=== PATIENT | female | born 1960 | race Caucasian/White ===

== ENCOUNTER → 2017-09-27 09:56 | Outpatient (CLI) | payer BC, SELFPAY ==
--- NOTE | 2017-09-27 10:00 | RAD_ITS ---
STUDY: X-RAY - RIGHT HAND REASON FOR EXAM: Female, 57 years old. Bilateral hand pain right greater than left. TECHNIQUE: 3 view(s) of the hand. COMPARISON: 02/21/2013 FINDINGS: Normal radiocarpal articulation. Normal distal radioulnar joint. There is demineralization of osseous structures. Normal visualized carpal bones. Normal carpal articulations Normal carpometacarpal articulation of the thumb. Normal second through fifth carpometacarpal joints. Normal metacarpi. There is worsening degenerative arthrosis of the metacarpophalangeal (MCP) joints. There are new subchondral cysts. Normal interphalangeal joint of the thumb. Normal proximal and distal phalanges of the thumb. Normal metacarpophalangeal joints of the second through fifth fingers. Mild narrowing of the proximal and distal interphalangeal joints of the second through fifth fingers. Minimal spurring. Normal phalanges of the second through fifth fingers. The soft tissue structures are unremarkable. RAD/Hand Min 3 Views IMPRESSION: Degenerative changes involving the interphalangeal joint with joint space narrowing, minimal interval spur formation. There is no significant change. Worsening of degenerative changes at the first carpometacarpal joint. There is demineralization of osseous structures. Electronically Signed: Leticia Womack MD at 7:55 EDT , Service support ,
--- NOTE | 2017-09-27 10:00 | RAD_ITS ---
STUDY: X-RAY - LEFT HAND REASON FOR EXAM: Female, 57 years old. Bilateral hand pain, right is worse. TECHNIQUE: 3 view(s) of the hand. COMPARISON: None. FINDINGS: Normal radiocarpal articulation. Normal distal radioulnar joint. PICC penia Normal visualized carpal bones. Normal carpal articulations Normal carpometacarpal articulation of the thumb. Normal second through fifth carpometacarpal joints. Normal metacarpi. There is degenerative arthrosis of the metacarpophalangeal (MCP) joints. Normal interphalangeal joint of the thumb. Normal proximal and distal phalanges of the thumb. Normal metacarpophalangeal joints of the second through fifth fingers. Mild narrowing of the proximal and distal interphalangeal joints of the second through fifth fingers. Normal phalanges of the second through fifth fingers. The soft tissue structures are unremarkable. RAD/Hand Min 3 Views IMPRESSION: Mild narrowing of the interphalangeal joints. Mild degenerative changes first carpometacarpal joint. There is demineralization of osseous structures. Electronically Signed: Leticia Womack MD at 7:44 EDT , Service support ,
== END ==
PROVIDERS: Family Provider Family Medicine; PCP Family Medicine; Visit Provider Family Medicine
DX: M79.644 Pain in right finger(s) (principal)
CPT/HCPCS: 73130

== ENCOUNTER → 2017-10-01 10:58 | Outpatient (CLI) | payer BC, SELFPAY ==
[2017-10-01 11:32] LABS: Absolute Lymphocyte Count 1.56 X10^3/ul (0.83-4.51); Absolute Neutrophil Count 4.1 X10^3/uL (2.0-7.7); Basophil# 0.01 X10^3/uL; Basophil% 0.2 % (0-1); Eosinophil# 0.15 X10^3/uL; Eosinophils% 2.4 % (0-5); Hematocrit 41.1 % (37-47); Hemoglobin 13.8 g/dl (12.0-15.0); Lymphocyte # 1.56 X10^3/ul (4.0); Lymphocyte % 25.1 % (19-41); Mean Corp Hgb Conc 33.6 g/gl (32-36); Mean Corpuscular Hgb 31.2 pg (27.0-32.0); Mean Corpuscular Volume 92.8 fL (81-99); Mean Platelet Vol. 9.4 fl (6.2-12.0); Monocyte# 0.39 X10^3/uL; Monocyte% 6.3 % (0-10); Neutrophil % 65.8 % (47-70); Platelet Count 197 K/mm3 (150-450); RBC Distribution Width CV 12.1 % (11.6-14.6); RBC Distribution Width SD 41.1 fl (35.1-43.9); Red Blood Count 4.43 M/mm3 (4.2-5.4); White Blood Count 6.2 K/mm3 (4.4-11.0)
[2017-10-01 11:33] LABS: POSITIVE COUNT NO; POSITIVE DIFFERENTIAL NO; POSITIVE MORPHOLOGY NO
[2017-10-01 11:57] LABS: Microalbumin,Random Urine 5.1 mg/L (NO RANGE EST.); Microalbumin:Creatinine Ratio 7.2 mg/g CRE (<30 mg/g CRE)
[2017-10-01 12:14] LABS: ALB/GLOB Ratio 1.2 RATIO (0.9-2.4); AST(SGOT) 14 U/L (15-37); Alanine Aminotransfer ALT/SGPT 17 U/L (13-56); Albumin, Serum 3.7 g/dL (3.2-5.0); Alkaline Phosphatase 108 U/L (45-117); Anion Gap 6 (5-15); BUN 14 mg/dL (7-18); BUN/Creat Ratio 15.2 RATIO (10-20); Calcium,Total 8.5 mg/dL (8.5-10.1); Chloride 109 mmol/L (98-107); Cholesterol 153 mg/dL (200); Creatinine, Serum 0.92 mg/dL (0.55-1.02); EST Glomerular Filtration Rate 67 mL/min (>60); Est Glom Filt Rate - Afr Amer 81 mL/min (>60); Glucose 82 mg/dL (74-106); High Density Lipoprotein 36 mg/dL; Potassium 4.1 mmol/L (3.5-5.1); Protein, Total 6.7 g/dL (6.4-8.2); Sodium Level 143 mmol/L (136-145); Triglycerides 84 mg/dL; Very Low Density Lipoprotein 17 mg/dL (5-40)
== END ==
PROVIDERS: Family Provider Family Medicine; PCP Family Medicine; Visit Provider Family Medicine
DX: Z00.00 Encounter for general adult medical examination without abnormal findings (principal); R03.0 Elevated blood-pressure reading, without diagnosis of hypertension; F17.200 Nicotine dependence, unspecified, uncomplicated
CPT/HCPCS: 36415; 80053; 80061; 82043; 82570; 84443; 85025

== ENCOUNTER 2017-10-18 09:00 | Outpatient (RCR) | payer BC, SELFPAY ==
--- NOTE | 2017-10-07 09:54 | HP.OTEVAL_ITS ---
Patient's Visit Information NAILA ZHANG is a 57 year old F, referred to Occupational Therapy by DR.ESMITH Don, with a diagnosis of Bilateral CMC arthritis-. Date of Evaluation: 10/07/17 Occupational Therapist: Isabella Viera, ÁNGEL/Ray, CHT - Subjective Subjective: pt states she is having bilateral thumb pain following home mtg. 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 pt states work is willing to assist with ergo work station as needed. - Pain right thumb 0 Pain Intensity Range: 0, 8 left thumb 0 Pain Intensity Range: 0, 6 - ROM CMC: right 15 left 15 MP: right 34 left 50 IP: right 60 left 75 Radial Abduction: right 30 left wfl Palmar Abduction: WNL - Strength Tube Building Machine Operator: right 65# left 60# Lateral Pinch: right 8# left left 10# both MCP collapse Tripod Pinch: right 8# left 8# - Hand/Wrist Evaluation Total Score of Pain & Functional Sections: 39 - Goals Goal:: pt will report a decrease in bilateral CMC pain to less than 2/10 while performing BADLS, IADLs and work tasks by d/c Goal:: pt will demo the ability to manipulate coins for greater than 2 min with pain no greater than 2/10 by d/c Goal:: pt will demo the ind.with joint protc. danielle for work by d/c - Rehabilitation General Assessment: Pt demo with bilateral CMC arthritis. pt demo need for skilled OT services to assist pt on work ergo, joint protection, and ad. eq. OT will see pt 1-2x week for 4 weeks to ensure pt has made work ergo. adj, and using joint protection danielle. during her day. Rehabilitation Potential: Good - Anticipated Interventions Anticipated Interventions: A/AAROM/PROM, Strengthening, Triggerpoint Release, Modalities, Orthoses, Joint Protection/Energy Conservation, Ergonomic Education - Visit Plan Frequency: 1-2x /Week Duration: 4 Weeks General Plan: OT will see pt 1-2xweek for 4 weeks will ed. pt on joint protection-thumb care and ad.eq.to increase pts ind. with BADLS and IADLS and work tasks. TEXT: Thank you for the opportunity to evaluate your patient. For Medicare and Medicare HMO plans, please review the plan of care and approve it. It will need to be FAXED BACK to us at [phone] for Medicare purposes. Please let me know if there are questions or concerns regarding this plan of care. Physician Signature: Date:
--- NOTE | 2018-03-14 09:07 | HP.OT.NRP ---
HP - Discharge Summary - Patient Information NAILA ZHANG was seen in my office for initial evaluation on 10/07/17. The following Plan of Care was established for this patient: Initial Frequency: 1-2x /Week Initial Duration: 4 Weeks Plan: cont with orthosis adj and erasmo of left cmc orthosis - Anticipated Interventions Anticipated Interventions: A/AAROM/PROM, Strengthening, Triggerpoint Release, Modalities, Orthoses, Joint Protection/Energy Conservation, Ergonomic Education This patient was last seen in our office 10/18/17. Pertinent comments regarding their Occupational therapy will appear below: PT was seen for 2 visits. pt did have 4 No show cancellations during this time. pt has not returned to OT sessions and due to time laps pt is D/C at this time. At this point I will be discontinuing this patient from occupational therapy. I would be happy to see this patient again in the future if found appropriate by the physician. Thank you! Isabella Viera, OTR/L, CHT
== END 2017-10-18 19:00 | disposition home or self-care (01) ==
LOC: OT 09:00
PROVIDERS: Family Provider Family Medicine; PCP Family Medicine; Visit Provider Family Medicine
DX: M79.641 Pain in right hand (principal); M79.642 Pain in left hand; M19.042 Primary osteoarthritis, left hand; M19.041 Primary osteoarthritis, right hand
CPT/HCPCS: 97110; 97166; 97760

== ENCOUNTER → 2018-06-23 10:57 | Outpatient (CLI) | payer BC, SELFPAY ==
[2018-06-27 09:07] LABS: HPV HC, High Risk Negative (Negative)
== END ==
PROVIDERS: Visit Provider Obstetrics & Gynecology
DX: Z12.4 Encounter for screening for malignant neoplasm of cervix (principal)
CPT/HCPCS: 87624; 88175; G0145

== ENCOUNTER → 2018-07-03 09:17 | Outpatient (CLI) | payer BC, SELFPAY ==
[2018-07-03 12:48] LABS: Vitamin D,25 Hydroxy 29.4 ng/mL (29.95-100.01)
[2018-07-03 12:57] LABS: Ferritin 5 ng/mL (8-252); Thyroid Stim Hormone (TSH) 0.94 uIU/mL (0.358-3.74)
--- OUTSIDE RECORDS SUMMARY | 2018-10-04 21:33 | XMS RPT_ITS ---
:1960 Author Organization OHIP Care Team Providers Name Role Phone You Peraza Attending Unavailable You Peraza Referring Unavailable You Peraza Primary Care Unavailable Martin Rothman Attending Unavailable Ana Rivera Attending Unavailable You Peraza Referring Unavailable You Peraza Primary Care Unavailable Peraza, You Attending Unavailable Peraza, You Referring Unavailable Peraza, You Primary Care Unavailable Peraza, You Attending Unavailable Peraza, You Referring Unavailable Peraza, You Primary Care Unavailable Peraza, You Attending Unavailable Peraza, You Referring Unavailable Peraza, You Primary Care Unavailable PROBLEMS PROBLEMS DATE TYPE CONDITION / CODE ATTENDING STATUS SOURCE 06/23/2018 Unknown Z12.4 - Encounter for Martin Rothman Active [place] screening for Community malignant neoplasm of Hospital cervix / Repository Z12.4(ICD-10) 03/14/2018 Unknown M79.641 - Pain in You Peraza Active [place] right hand / Community M79.641(ICD-10) Hospital Repository 10/06/2017 Unknown M18.11 - Unilateral [place], Active [place] primary [facility] 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, right hand / M18.11(ICD-10) 10/06/2017 Unknown M18.12 - Unilateral [place], Active [place] primary [facility] 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, left hand / M18.12(ICD-10) 10/01/2017 Unknown R03.0 - Elevated You Peraza Active [place] blood-pressure Community reading, without Hospital diagnosis of Repository hypertension / R03.0(ICD-10) 10/01/2017 Unknown F17.200 - Nicotine You Peraza Active [place] dependence, Community unspecified, Hospital uncomplicated / Repository F17.200(ICD-10) 10/01/2017 Unknown Z00.00 - Encounter You Peraza Active [place] for general adult [facility] medical [facility] without abnormal Repository findings / Z00.00(ICD-10) PROCEDURES PROCEDURES No Procedure Records FoundRESULTS RESULTS VITAMIN D,25 HYDROXY Collected: 07/03/2018 Status: F Source: [place] 9[facility] TYPE CODE TESTS RESULT OUT OF REFERENCE UNITS RANGE LAB L506.1000 29.95-100.01 ng/mL Low Vitamin D 29.4 25-OH Result Comment: Vitamin D 25(OH) Status Range Deficiency <20 ng/mL (50nmol/L) Insuffciency 20 - 30 ng/mL (50 - 75 nmol/L) Sufficiency 30 - 100 ng/mL (75 - 250 nmol/L) Toxicity >100 ng/mL (>250 nmol/L) Performed By: #### L506.1000 #### [place] [facility] [address] [place], [address] THYROID STIM HORMONE Collected: 07/03/2018 Status: F Source: [place] (TSH) 9:23 AM [facility] REPOSITORY TYPE CODE TESTS RESULT OUT OF RANGE REFERENCE UNITS LAB L501.9520 0.358-3.74 uIU/mL Normal TSH 0.94 Performed By: #### L501.9520, L503.6550 #### [facility] [address] [place], [address] FERRITIN Collected: 07/03/2018 Status: F Source: [place] 9:23 AM [facility] REPOSITORY TYPE CODE TESTS RESULT OUT OF REFERENCE UNITS RANGE LAB L503.6550 8-252 ng/mL Low FERRITIN 5 Performed By: #### L501.9520, L503.6550 #### [facility] [address] 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 of containers..01 ThinPrep Vial TYPE CODE TESTS RESULT OUT OF RANGE REFERENCE UNITS LAB L7400.0800 . Normal DIAGN Comment Result Comment: NEGATIVE FOR INTRAEPITHELIAL LESION AND MALIGNANCY. LAB L7400.0900 . Normal ADEQ Comment Result Comment: Satisfactory for evaluation. Endocervical and/or squamous metaplastic cells (endocervical component) are present. LAB L7400.1400 . Normal PERFORM Comment Result Comment: Alana Edwards, Rigger (ASCP) LAB L7400.2575 . Normal TEST METHOD Comment Result Comment: This liquid based ThinPrep(R) pap test was screened with the use of an image guided system. LAB L7400.2600 . Normal . COMM LAB L7400.2700 . Normal PAPSMR Comment Result Comment: The Pap smear is a screening test designed to aid in the detection of premalignant and malignant conditions of the uterine cervix. It is not a diagnostic procedure and should not be used as the sole means of detecting cervical cancer. Both false-positive and false-negative reports do occur. LAB L7400.2950 Negative Normal HPV Negative HC,HGH RISK Result Comment: This high-risk HPV test detects thirteen high-risk types (16/18/31/33/35/39/45/51/52/56/58/59/68) without differentiation. Performed at: - [facility] [id number] Vice President Of Recruiting: Sanjuana Sellers MD, Phone: [phone] Performed at: = - [facility] [id number] Vice President Of Recruiting: Sanjuana Sellers MD, Phone: [phone] Performed By: #### L7400.0375 #### [facility] (refer to report for specific site) refer to report for address and phone number OT D/C OF NON Observed: 03/14/2018 Status: F Source: [place] PT 9:22 AM [facility] REPOSITORY [facility] Occupational Therapy [facility] [address] [place] [address]. [address] [place] [address] Fax REHABILITATION SERVICES DISCHARGE SUMMARY MR#: [id number] Acct: [id number] Name: MARY ZHANG Rep #: [id number] : 1960 58 From: Isabella Viera OTR/L, CHT Referring Dr.: You Peraza MD Status: REG RCR Eval Date: Discharge Date: HP - Discharge Summary - Patient Information MARY ZHANG was seen in my office for initial evaluation on 10/07/17. The following Plan of Care was established for this patient: Initial Frequency: 1-2x /Week Initial Duration: 4 Weeks Plan: cont with orthosis adj and erasmo of left cmc orthosis - Anticipated Interventions Anticipated Interventions: A/AAROM/PROM, Strengthening, Triggerpoint Release, Modalities, Orthoses, Joint Protection/Energy Conservation, Ergonomic Education This patient was last seen in our office 10/18/17. Pertinent comments regarding their Occupational therapy will appear below: PT was seen for 2 visits. pt did have 4 No show cancellations during this time. pt has not returned to OT sessions and due to time laps pt is D/C at this time. At this point I will be discontinuing this patient from occupational therapy. I would be happy to see this patient again in the future if found appropriate by the physician. Thank you! ZACHERY Medina CHT <Electronically signed by Isabella BINGHAM CHT> 03/14/18 0922 CC: You Peraza MD MK Signed OT GENERAL EVALUATION Observed: 10/07/2017 Status: F Source: [place] 11:54 AM [facility] REPOSITORY [facility] Occupational Therapy [facility] [address]. [address] [place], [place] [address] Fax REHABILITATION SERVICES INITIAL EVALUATION MR#: [id number] Acct: [id number] Name: MARY ZHANG Rep #: [id number] : 1960 57 From: Isabella BINGHAM CHT Referring Dr.: You Peraza MD Status: REG RCR Insurance: [facility] Date: SELF PAY INSURANCE Patient's Visit Information MARY ZHANG is a 57 year old F, referred to Occupational Therapy by DR.ESMITH Don, with a diagnosis of Bilateral CMC arthritis-. Date of Evaluation: 10/07/17 Occupational Therapist: ZACHERY Medina CHT - Subjective Subjective: pt states she is having bilateral thumb pain following home mtg. 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 pt states work is willing to assist with ergo work station as needed. - Pain right thumb 0 Pain Intensity Range: 0, 8 left thumb 0 Pain Intensity Range: 0, 6 - ROM CMC: right 15 left 15 MP: right 34 left 50 IP: right 60 left 75 Radial Abduction: right 30 left wfl Palmar Abduction: WNL - Strength Travel Physical Therapist: right 65# left 60# Lateral Pinch: right 8# left left 10# both MCP collapse Tripod Pinch: right 8# left 8# - Hand/Wrist Evaluation Total Score of Pain AND Functional Sections: 39 - Goals Goal:: pt will report a decrease in bilateral CMC pain to less than 2/10 while performing BADLS, IADLs and work tasks by d/c Goal:: pt will demo the ability to manipulate coins for greater than 2 min with pain no greater than 2/10 by d/c Goal:: pt will demo the ind.with joint protc. danielle for work by d/c - Rehabilitation General Assessment: Pt demo with bilateral CMC arthritis. pt demo need for skilled OT services to assist pt on work ergo, joint protection, and ad. eq. OT will see pt 1-2x week for 4 weeks to ensure pt has made work ergo. adj, and using joint protection danielle. during her day. Rehabilitation Potential: Good - Anticipated Interventions Anticipated Interventions: A/AAROM/PROM, Strengthening, Triggerpoint Release, Modalities, Orthoses, Joint Protection/Energy Conservation, Ergonomic Education - Visit Plan Frequency: 1-2x /Week Duration: 4 Weeks General Plan: OT will see pt 1-2xweek for 4 weeks will ed. pt on joint protection-thumb care and ad.eq.to increase pts ind. with BADLS and IADLS and work tasks. TEXT: Thank you for the opportunity to evaluate your patient. For Medicare and Medicare HMO plans, please review the plan of care and approve it. It will need to be FAXED BACK to us at [phone] for Medicare purposes. Please let me know if there are questions or concerns regarding this plan of care. Physician Signature: Date: <Electronically signed by Isabella NEAL/Ray, CHT> 10/07/17 1154 CC: You Peraza MD FRANSICO Signed For Medicare only, by signing this I certify the plan of care. Physicians Signature Date ORTHOPEDIC VISIT Observed: 10/06/2017 Status: F Source: [place] REPORT 11:29 AM [facility] REPOSITORY [facility] Orthopa[facility]ics AND Sports Medicine [address] [place] [address] 5 [place] [address] OFFICE VISIT Date of Service: 10/06/17 MR#: [id number] Acct: [id number] Name: MARY ZHANG Rep #: [id number] : 1960 Provider: Ana Rivera DO Age/Sex: 57/F [place] [facility] [place] [place] Signed Intake Intake Visit Reasons: Right Thumb Is patient in pain?: Yes Allergies No Known Allergies Allergy (Unverified 10/06/17 08:35) Medications bupropion HCl XL 300 mg 24 hr tablet, extended release 300 mg PO QAM 10/06/17 [History Confirmed 10/06/17] meloxicam 15 mg tablet 15 mg PO QDAY 10/06/17 [History Confirmed 10/06/17] PFSH Surgical History ectopic surgery (Acute) Social History Smoking Status: Current every day smoker alcohol intake: current alcohol intake frequency: holidays/special occasions only HPI Right Thumb: Details: MARY ZHANG is a 57 year old F here today for bilateral hand pain, right greater than left. Patient complains of pain over the base of her thumbs. She has been having the pain for many years with it progressively worsening. Patient denies any grinding. She has increased pain with activities although her pain is constant. She denies any pain relief. Patient notices weakness. Patient has wrist braces which are somewhat helpful. She denies any injections or therapy. Patient had xrays recently. Denies numbness, tingling or other associated symptoms. ROS Const Reports system reviewed and no additional complaints, except as docu Eyes Reports system reviewed and no additional complaints, except as docu ENT Reports system reviewed and no additional complaints, except as docu Card Reports system reviewed and no additional complaints, except as docu Resp Reports system reviewed and no additional complaints, except as docu GI Reports system reviewed and no additional complaints, except as docu Reports system reviewed and no additional complaints, except as docu Musc Reports joint pain Skin/Breast Reports system reviewed and no additional complaints, except as docu Neuro Yes system reviewed and no additional complaints, except as docu Psych Reports system reviewed and no additional complaints, except as docu Endo Reports system reviewed and no additional complaints, except as docu Ortho Exam Right Wrist/Hand Skin/Wound: Yes CDI Contralateral Normal: No A1 tony trigger: No Right Wrist: Yes ROM-Extension 0-60, ROM-Flexion 0-80, ROM- Pronation 0-80 and ROM-Supination 0-90; no Durken's Test or Snuffbox tenderness Motor: EPL: 5, FDP-2: 5, 1st Dorsal Interosseous: 5, APB: 5 Sensation: Radial: I, Ulnar: I, Median: I WRIST: thenar atrophy Left Wrist/Hand Skin/Wound: Yes CDI Contralateral Normal: No A1 tony trigger: No Left Wrist: Yes ROM-Extension 0-60, Yes ROM-Flexion 0-80 and Yes ROM-Supination 0-90; no Durken's Test or no Snuffbox tenderness Motor: EPL: 5, FDP-2: 5, 1st Dorsal Interosseous: 5, APB: 5 Sensation: Radial: I, Ulnar: I, Median: I WRIST: thenar atrophy Office Procedures Ortho Injections Injections Yes CMC Right Details: Obtained consent for injection. Under sterile conditions, injected the patients right CMC with a 1.5cc cocktail of 1cc bupivacaine and 0.5cc kenalog. The patient tolerated the injection well without any noted complication. Patient should call our office if redness develops, pain worsens or if they have any concerns. Office Meds Kenalog Performing Provider: Ana Rivera DO Administered by: Ana Rivera DO on 10/06/17 09:28 Dose Route Admin Location Lot Number Expiration DateNDC Turn Machine Operator 0.5 mg Intra-Articularright cmc [id number] 10/16/18 5384-7020-71 [facility] Assessment AND Plan 1. Arthritis of carpometacarpal (CMC) joint of both thumbs M18.11; M18.12 Plan Positive grind on right, pos oa cmc joint. xrays personally reviewed showing right>left cmc osteoarthritis. discussed options and patient doing bracing with minimal relief and is active at job lifting with thumb causing pain and achiness on the right. discussed continuing antiinflammatories and patient elected to proceed with cmc joint injection on right. Personally reviewed the patient's medical history, medications, surgeries and recent exams if available. X-rays were reviewed. There is no obvious fracture, dislocation, or lucency noted but she does have cmc oa, worse in the right with collapse. On exam her pain is in the thenar eminence, pos grind on right but pain is thenar not joint. TTP and with stress of ligaments in adduction. Two pt discrim is neg. Treatment options are do nothing, OT, injection for pain relief and diagnostic eval. Injections can be repeated in 3-4 months if needed. Instructed to use the hand normally without the brace because movement is better for keeping the joint lubricated. She can try the brace at night if helpful. Follow up in 3-4 if needed or sooner if pain, swelling, numbness or associated symptoms, or concerns develop. All questions answered. Patient in agreement of plan. Orders Orders: Medications Discontinued: Kenalog (triamcinolone acetonide) Di0.5 mg (0.05 mL) Intra- Articular ONCE N Steve Ricketts scontinued Reason: Office Medication hS as been Documented as given Coding Level of Care Code Off vis,est,level 4 Diagnoses Arthritis of carpometacarpal (CMC) joint of both thumbs M18.11; M18.12 Additional Codes coding clerk.cmc ([id number]) 10/06/17 1129 <Electronically signed by Ana Rivera DO> Date Ana Rivera DO Cosigner Signature: Date (if applicable) CC: DEANNA W/DIFF, AUTOMATED Collected: 10/01/2017 Status: F Source: [place] 11:01 AM [facility] REPOSITORY TYPE CODE TESTS RESULT OUT OF RANGE REFERENCE UNITS LAB L100.1000 4.4-11.0 K/mm3 Normal WBC 6.2 LAB L100.1200 4.2-5.4 M/mm3 Normal RBC 4.43 LAB L100.1300 12.0-15.0 g/dl Normal HGB 13.8 LAB L100.1400 37-47 % Normal HCT 41.1 LAB L100.1500 81-99 fL Normal MCV 92.8 LAB L100.1600 27.0-32.0 pg Normal MCH 31.2 LAB L100.1700 32-36 g/gl Normal MCHC 33.6 LAB L100.1810 11.6-14.6 % Normal RDW CV 12.1 LAB L100.1820 35.1-43.9 fl Normal RDW SD 41.1 LAB L100.1900 150-450 K/mm3 Normal PLT 197 LAB L100.2000 6.2-12.0 fl Normal MPV 9.4 LAB L100.2100 47-70 % Normal NEUT% 65.8 LAB L100.2200 19-41 % Normal LY% 25.1 LAB L100.2300 0-10 % Normal MONO% 6.3 LAB L100.2400 0-5 % Normal EO% 2.4 LAB L100.2500 0-1 % Normal BASO% 0.2 LAB L100.2550 0.0-0.9 % Normal IM GRAN % 0.200 Result Comment: IG% - Immature Granulocytes (promyelocytes, myelocytes and metamyelocytes) > 1% indicates that a LEFT SHIFT is Present. LAB L100.2620 2.0-7.7 X10 3/uL Normal Absolute Neut 4.1 LAB L100.2720 0.83-4.51 X10 3/ul Normal Absolute Lymph 1.56 Performed By: #### L100.0100 #### [facility] [address] [facility] [place], [address] MICROALB:CREAT Collected: 10/01/2017 Status: F [facility] REPOSITORY TYPE CODE TESTS RESULT OUT OF RANGE REFERENCE UNITS LAB L501.1200 NO RANGE EST. mg/dL Normal UR CREAT 70.30 LAB L502.0500 NO RANGE EST. mg/L Normal 5.1 MICROALBUMIN ,UR LAB L502.0600 <30 mg/g CRE mg/g CRE Normal 7.2 MALB:CREAT Performed By: #### L502.0250 #### [facility] [address], [address] COMPREHENSIVE METABOLIC Collected: 10/01/2017 Status: F Source: [place] [facility] 11:01 AM [facility] REPOSITORY TYPE CODE TESTS RESULT OUT OF RANGE REFERENCE UNITS LAB L501.0100 74-106 mg/dL Normal GLU 82 Result Comment: Please note revised GLUCOSE reference range effective 2017. LAB L501.1000 7-18 mg/dL Normal BUN 14 LAB L501.1100 0.55-1.02 mg/dL Normal CREAT,SERUM 0.92 Result Comment: The validity of the calculated GFR AND GFRAA in patients over 70 years has not been determined. Clinical correlation is essential. LAB L501.1110 >60 mL/min Normal EST GFR 67 Result Comment: Non- GFR Calc LAB L501.1115 >60 mL/min Normal EST GFR - AA 81 Result Comment: GFR Calc LAB L501.1300 10-20 RATIO Normal BUN/CRE 15.2 LAB L501.1500 6.4-8.2 g/dL T Normal PROT 6.7 LAB L501.1800 3.2-5.0 g/dL Normal ALB 3.7 LAB L501.1950 2.2-4.2 g/dL Normal GLOB 3.0 LAB L501.2000 0.9-2.4 RATIO Normal A/G 1.2 LAB L501.2200 8.5-10.1 mg/dL CA Normal 8.5 LAB L501.4100 15-37 U/L Low AST 14 LAB L501.4305 45-117 U/L Normal ALK P 108 LAB L501.4405 13-56 U/L Normal ALT 17 Result Comment: Please note revised ALT reference range effective 2017. LAB L501.4600 0.20-1.00 mg/dL Normal T BILI 0.70 LAB L501.5300 136-145 mmol/L Normal NA 143 LAB L501.5600 3.5-5.1 mmol/L Normal K 4.1 LAB L501.5900 98-107 mmol/L High CL 109 LAB L501.6100 21.0-32.0 mmol/L Normal CO2 28.0 LAB L501.6200 5-15 Normal GAP 6 Performed By: #### L500.4050, L500.4100, L501.9520 #### [facility] [address] [place], [address] LIPID PROFILE Collected: 10/01/2017 Status: F Source: [place] 11:01 AM [facility] REPOSITORY TYPE CODE TESTS RESULT OUT OF RANGE REFERENCE UNITS LAB L501.4900 200 mg/dL Normal CHOL 153 Result Comment: <200 mg/dL Desirable 200-240 mg/dL Borderline >240 mg/dL High Risk LAB L501.5000 mg/dL Normal TRIG 84 Result Comment: The drugs N-Acetylcysteine and Metamizole may falsely depress this assay. Serum Triglycerides Reference Interval Normal <150 mg/dL Borderline high 150 - 199 mg/dL High 200 - 499 mg/dL Very High > or = 500 mg/dL LAB L501.6400 mg/dL Low HDL 36 Result Comment: The drugs N-Acetylcysteine and Metamizole may falsely depress this assay. Reference Range HDL <40 mg/dL Low HDL Cholesterol HDL >or= 60 mg/dL High HDL Cholesterol LAB L501.6500 0-130 mg/dL Normal LDL 100 LAB L501.6600 5-40 mg/dL Normal VLDL 17 Performed By: #### L500.4050, L500.4100, L501.9520 #### [facility] [address] [place], [address] THYROID STIM HORMONE Collected: 10/01/2017 Status: F Source: [place] ([place]) 11:01 AM [facility] REPOSITORY TYPE CODE TESTS RESULT OUT OF RANGE REFERENCE UNITS LAB L501.9520 0.358-3.74 uIU/mL Normal TSH 0.80 Performed By: #### L500.4050, L500.4100, L501.9520 #### [facility] [address] [place], [address] HAND MIN 3 VIEWS Observed: 09/27/2017 Status: F Source: [place] [facility] Imaging Services [address] [place] [address] Hand Min 3 Views MR#: [id number] Acct: [id number] Name: MARY ZHANG Rep #: [id number] : 1960 F 57 From: Leticia Womack MD PCP: You Peraza MD Status: REG CLI Study: Hand Min 3 Views Date of Exam: 09/27/17 Exam# [id number] Ordering Dr: You Peraza MD STUDY: X-RAY - LEFT HAND REASON FOR EXAM: Female, 57 years old. Bilateral hand pain, right is worse. TECHNIQUE: 3 view(s) of the hand. COMPARISON: None. FINDINGS: Normal radiocarpal articulation. Normal distal radioulnar joint. PICC penia Normal visualized carpal bones. Normal carpal articulations Normal carpometacarpal articulation of the thumb. Normal second through fifth carpometacarpal joints. Normal metacarpi. There is degenerative arthrosis of the metacarpophalangeal (MCP) joints. Normal interphalangeal joint of the thumb. Normal proximal and distal phalanges of the thumb. Normal metacarpophalangeal joints of the second through fifth fingers. Mild narrowing of the proximal and distal interphalangeal joints of the second through fifth fingers. Normal phalanges of the second through fifth fingers. The soft tissue structures are unremarkable. RAD/Hand Min 3 Views IMPRESSION: Mild narrowing of the interphalangeal joints. Mild degenerative changes first carpometacarpal joint. There is demineralization of osseous structures. Electronically Signed: Leticia Womack MD at 7:44 EDT , Service support , CC: You Peraza MD Jacquard Fixer: Signed HAND MIN 3 VIEWS Observed: 09/27/2017 Status: F Source: [place] 10:00 AM [facility] REPOSITORY [facility] Imaging Services [address] [place] [address] Hand Min 3 Views MR#: [id number] Acct: [id number] Name: MARY ZHANG Rep #: [id number] : 1960 F 57 From: Leticia Womack MD PCP: You Peraza MD Status: REG CLI Study: Hand Min 3 Views Date of Exam: 09/27/17 Exam# [id number] Ordering Dr: You Peraza MD STUDY: X-RAY - RIGHT HAND REASON FOR EXAM: Female, 57 years old. Bilateral hand pain right greater than left. TECHNIQUE: 3 view(s) of the hand. COMPARISON: 02/21/2013 FINDINGS: Normal radiocarpal articulation. Normal distal radioulnar joint. There is demineralization of osseous structures. Normal visualized carpal bones. Normal carpal articulations Normal carpometacarpal articulation of the thumb. Normal second through fifth carpometacarpal joints. Normal metacarpi. There is worsening degenerative arthrosis of the metacarpophalangeal (MCP) joints. There are new subchondral cysts. Normal interphalangeal joint of the thumb. Normal proximal and distal phalanges of the thumb. Normal metacarpophalangeal joints of the second through fifth fingers. Mild narrowing of the proximal and distal interphalangeal joints of the second through fifth fingers. Minimal spurring. Normal phalanges of the second through fifth fingers. The soft tissue structures are unremarkable. RAD/Hand Min 3 Views IMPRESSION: Degenerative changes involving the interphalangeal joint with joint space narrowing, minimal interval spur formation. There is no significant change. Worsening of degenerative changes at the first carpometacarpal joint. There is demineralization of osseous structures. Electronically Signed: Leticia Womack MD at 7:55 EDT , Service support , CC: You Peraza MD Jacquard Fixer: Signed ALLERGIES ALLERGIES DATE TYPE / CODE NAME / CODE REACTION SEVERITY SOURCE 10/06/2017 Drug No Known Unknown [place] [facility] Allergy/4160 Allergies/F00 Hospital 35568(SNOMED [id number](RXNOR Repository CT) M) ENCOUNTERS ENCOUNTERS ADMIT/DISCHARGE ACCOUNT ADMITTING ENCOUNTER LOCATION SOURCE NUMBER CLASS 07/03/2018 [id number] Ambulatory [place] 5 [facility] ing:MTLAB Repository 06/23/2018 [id number] Ambulatory [place] 3 [facility] ing:LABSPEC Repository 10/18/2017/ [id number] Ambulatory [place] 8 2 [facility] ing:OT Repository 10/06/2017/ [id number] Ambulatory BMSBuilding:B [place] 8 0 [facility] Repository 10/01/2017 [id number] Ambulatory [place] 8 [facility] ing:LAB Repository 09/27/2017 [id number] Ambulatory [place] K[place] 9 [facility] ing:MTRAD Repository PAYERS PAYERS ENCOUNTER GUARANTOR PAYER SUBSCRIBER SOURCE 07/03/2018 MARY S Primary MARY S [place] [id number] [place] Insurance:ANTHEMPolic [facility] [place] [place] Number: [id number] [id number]: 330 [id number] Repository [phone] () Date:[id number] [address] [place] [address] 60371DI: 07/03/2018 Secondary NOT GIVENUNK [place] Insurance:SELF PAY [facility] Number: Effective Repository Date:2018-07-03 06/23/2018 Mary S Primary Mary S [place] [id number] Insurance:ANTHEMPolic FrostDOB: [place] Number: [id number] [id number]: 330 [id number] Repository [phone] () Date:1657-11-60PP [address] [place] [address] 16369XB: 06/23/2018 Secondary NOT GIVENUNK [place] Insurance:SELF PAY [facility] Number: Effective Repository Date:2018-06-23 10/18/2017 Mary S Primary Mary S [place] [id number] [address] Insurance:ANTHEMPolic [place]: [id number] [address]Zsd: (603) [id number] Repository [phone] () Date:1303-99-37UR [address] [place] [address] [id number]: 10/18/2017 Secondary NOT GIVENUNK [place] Insurance:SELF PAY [facility] Number: Effective Repository Date:2017-09-30 10/06/2017 Mary S Primary Mary S [place] [id number] [place] Insurance:ANTHEMPolic [place]: [id number] [address]Buz: 330) [id number] Repository [phone] () Date:[id number] [id number] [place] [address] 32974BG: 10/06/2017 Secondary NOT GIVENUNK [place] Insurance:SELF PAY [facility] Number: Effective Repository Date:2017-10-06 10/01/2017 Mary S Primary Mary S [place] [id number] [place] Insurance:ANTHEMPolic [facility] [place] [place] Number: [id number] [address]Qvt: (330) [id number] Repository [phone] () Date:[id number] [id number] [place] [address] 75595OX: 10/01/2017 Secondary NOT GIVENUNK [place] Insurance:SELF PAY [facility] Number: Effective Repository Date:2017-10-01 09/27/2017 Mary S Primary Mary S [place] [id number] [place] Insurance:ANTHEMPolic [place]: [id number] [id number]: (330 [id number] Repository [phone] (HP) Date:[id number] [address]QYXQ[address], KEILA [address]LD: 09/27/2017 Secondary NOT GIVENUNK [place] Insurance:SELF [facility]: Effective Repository Date:2017-09-27
== END ==
PROVIDERS: Family Provider Family Medicine; PCP Family Medicine; Referring Provider Family Medicine; Visit Provider Family Medicine
DX: M19.90 Unspecified osteoarthritis, unspecified site (principal); F33.8 Other recurrent depressive disorders
CPT/HCPCS: 36415; 82306; 82728; 84443

== ENCOUNTER → 2018-08-12 07:54 | Outpatient (CLI) | payer BC, SELFPAY ==
--- NOTE | 2018-08-12 07:57 | BI_ITS ---
MAMMOGRAPHY - BILATERAL SCREENING REASON FOR EXAM: Female, 58 years old. Routine annual screening examination. PERTINENT HISTORY: Grandmother with breast cancer. TECHNIQUE: Digital bilateral breast tesfaye (3D mammographic acquisition) in the CC and MLO projections. 2-D mediolateral oblique (MLO) and craniocaudad (CC) views of both breasts were obtained. CAD: Full Field Digital Mammography with Computer Added Detection was performed. COMPARISON: Comparison is made with prior study dated March 01, 2017 and July 10, 2015. FINDINGS: Breast Composition: The breasts are heterogeneously dense, which may obscure small masses. There are no dominant masses or suspicious calcifications. No other significant abnormalities are identified. There has been no significant change since the prior study. BI/SCREENING MAMM (CAD), BILAT IMPRESSION: Stable bilateral screening mammogram. Yearly follow-up mammogram recommended. (A) ASSESSMENT CATEGORY: BIRADS Category 1: Negative. A letter regarding these results will be sent to the patient by the facility within 30 days. Approximately 10% of breast cancers are not detected by mammography. A normal mammogram should not delay biopsy of a clinically suspicious abnormality. [id number] Electronically Signed: Zaire Martin MD at 9:34 EST , Service support ,
== END ==
PROVIDERS: Family Provider Family Medicine; PCP Family Medicine; Referring Provider Obstetrics & Gynecology; Visit Provider Obstetrics & Gynecology
DX: Z12.31 Encounter for screening mammogram for malignant neoplasm of breast (principal)
CPT/HCPCS: 77063; 77067

== ENCOUNTER → 2018-10-25 | Outpatient (CLI) | payer BC, SELFPAY ==
[2018-10-25 09:08] LABS: Absolute Lymphocyte Count 1.52 X10^3/ul (0.83-4.51); Absolute Neutrophil Count 6.1 X10^3/uL (2.0-7.7); Basophil# 0.01 X10^3/uL; Basophil% 0.1 % (0-1); Eosinophil# 0.13 X10^3/uL; Eosinophils% 1.6 % (0-5); Hematocrit 39.4 % (37-47); Hemoglobin 13.6 g/dl (12.0-15.0); Lymphocyte # 1.52 X10^3/ul (4.0); Lymphocyte % 18.7 % (19-41); Mean Corp Hgb Conc 34.5 g/gl (32-36); Mean Corpuscular Volume 89.7 fL (81-99); Mean Platelet Vol. 9.1 fl (6.2-12.0); Monocyte# 0.32 X10^3/uL; Monocyte% 3.9 % (0-10); Neutrophil # 6.14 X10^3/uL (2.7-7.7); Neutrophil % 75.7 % (47-70); Platelet Count 206 K/mm3 (150-450); RBC Distribution Width CV 13.1 % (11.6-14.6); RBC Distribution Width SD 42.5 fl (35.1-43.9); Red Blood Count 4.39 M/mm3 (4.2-5.4); White Blood Count 8.1 K/mm3 (4.4-11.0)
[2018-10-25 09:10] LABS: POSITIVE COUNT NO; POSITIVE DIFFERENTIAL NO; POSITIVE MORPHOLOGY NO
[2018-10-25 09:28] LABS: Ferritin 22 ng/mL (8-252); Iron 150 ug/dL (50-170); Iron Binding Capacity,Total 273 ug/dL (250-450)
== END | disposition home or self-care (01) ==
LOC: LAB 08:23
PROVIDERS: Family Provider Family Medicine; PCP Family Medicine; Referring Provider Family Medicine; Visit Provider Family Medicine
DX: E61.1 Iron deficiency (principal)
CPT/HCPCS: 36415; 82728; 83540; 83550; 85025

== ENCOUNTER → 2019-03-05 | Outpatient (CLI) | payer BC, SELFPAY ==
[2019-03-05 09:48] LABS: Absolute Neutrophil Count 6.2 X10^3/uL (2.0-7.7); Basophil# 0.02 X10^3/uL; Basophil% 0.2 % (0-1); Eosinophil# 0.12 X10^3/uL; Eosinophils% 1.4 % (0-5); Hemoglobin 15.1 g/dL (12.0-15.0); Lymphocyte % 22.5 % (19-41); Mean Corp Hgb Conc 34.3 g/dL (32-36); Mean Corpuscular Hgb 31.7 pg (27.0-32.0); Mean Corpuscular Volume 92.2 fL (81-99); Mean Platelet Vol. 9.1 fl (6.2-12.0); Monocyte% 5.6 % (0-10); NRBC Flagged by Analyzer 0 % (0-5); Neutrophil # 6.22 X10^3/uL (2.7-7.7); Neutrophil % 70.1 % (47-70); Platelet Count 218 K/mm3 (150-450); RBC Distribution Width CV 11.4 % (11.6-14.6); RBC Distribution Width SD 38.9 fl (35.1-43.9); Red Blood Count 4.77 M/mm3 (4.2-5.4); White Blood Count 8.9 K/mm3 (4.4-11.0)
[2019-03-05 10:30] LABS: ALB/GLOB Ratio 1.2 RATIO (0.9-2.4); AST(SGOT) 17 U/L (15-37); Alanine Aminotransfer ALT/SGPT 28 U/L (13-56); Albumin, Serum 3.8 g/dL (3.2-5.0); Alkaline Phosphatase 105 U/L (45-117); Anion Gap 4 (5-15); BUN 19 mg/dL (7-18); Calcium,Total 9.5 mg/dL (8.5-10.1); Chloride 109 mmol/L (98-107); EST Glomerular Filtration Rate 68 mL/min (>60); Est Glom Filt Rate - Afr Amer 82 mL/min (>60); Ferritin 35 ng/mL (8-252); Globulin 3.3 g/dL (2.2-4.2); Glucose 95 mg/dL (74-106); Potassium 4.2 mmol/L (3.5-5.1); Protein, Total 7.1 g/dL (6.4-8.2); Sodium Level 141 mmol/L (136-145)
[2019-03-05 10:34] LABS: Vitamin D,25 Hydroxy 45.3 ng/mL (29.95-100.01)
== END | disposition home or self-care (01) ==
LOC: LAB 09:18
PROVIDERS: Family Provider Family Medicine; PCP Family Medicine; Referring Provider Family Medicine; Visit Provider Family Medicine
DX: G47.62 Sleep related leg cramps (principal); E55.9 Vitamin D deficiency, unspecified; E61.1 Iron deficiency
CPT/HCPCS: 36415; 80053; 82306; 82728; 85025

== ENCOUNTER → 2019-07-26 08:31 | Outpatient (CLI) | payer BC, SELFPAY ==
[2019-07-26 10:27] LABS: Anion Gap 8 (5-15); BUN 23 mg/dL (7-18); BUN/Creat Ratio 20.5 RATIO (10-20); Calcium,Total 9.4 mg/dL (8.5-10.1); Chloride 107 mmol/L (98-107); Creatinine, Serum 1.12 mg/dL (0.55-1.02); EST Glomerular Filtration Rate 53 mL/min (>60); Est Glom Filt Rate - Afr Amer 64 mL/min (>60); Glucose 105 mg/dL (74-106); Potassium 3.4 mmol/L (3.5-5.1); Sodium Level 140 mmol/L (136-145)
== END ==
PROVIDERS: Family Provider Family Medicine; PCP Family Medicine; Referring Provider Family Medicine; Visit Provider Nurse Practitioner Adult Health
DX: R03.0 Elevated blood-pressure reading, without diagnosis of hypertension (principal)
CPT/HCPCS: 36415; 80048

== ENCOUNTER → 2020-02-25 16:32 | Outpatient (CLI) | payer BC, SELFPAY ==
[2020-02-25 18:09] LABS: Absolute Lymphocyte Count 1.99 X10^3/uL (0.83-4.51); Absolute Neutrophil Count 4.4 X10^3/uL (2.0-7.7); Basophil# 0.02 X10^3/uL; Basophil% 0.3 % (0-1); Eosinophil# 0.08 X10^3/uL; Eosinophils% 1.2 % (0-5); Hematocrit 39.3 % (37-47); Hemoglobin 13.2 g/dL (12.0-15.0); Lymphocyte # 1.99 X10^3/ul (4.0); Lymphocyte % 28.9 % (19-41); Mean Corp Hgb Conc 33.6 g/dL (32-36); Mean Corpuscular Hgb 31.4 pg (27.0-32.0); Mean Corpuscular Volume 93.6 fL (81-99); Mean Platelet Vol. 9.8 fl (6.2-12.0); Monocyte% 5.8 % (0-10); NRBC Flagged by Analyzer 0 % (0-5); Neutrophil # 4.39 X10^3/uL (2.7-7.7); Neutrophil % 63.7 % (47-70); Platelet Count 255 K/mm3 (150-450); RBC Distribution Width CV 11.9 % (11.6-14.6); RBC Distribution Width SD 41.1 fl (35.1-43.9); White Blood Count 6.9 K/mm3 (4.4-11.0)
[2020-02-25 18:56] LABS: Vitamin B12 > 2000 pg/mL (211-911)
[2020-02-25 19:25] LABS: ALB/GLOB Ratio 1.1 RATIO (0.9-2.4); AST(SGOT) 13 U/L (15-37); Alanine Aminotransfer ALT/SGPT 23 U/L (13-56); Albumin, Serum 3.7 g/dL (3.2-5.0); Alkaline Phosphatase 121 U/L (45-117); Anion Gap 6 (5-15); BUN 10 mg/dL (7-18); BUN/Creat Ratio 11.6 RATIO (10-20); Calcium,Total 9.1 mg/dL (8.5-10.1); Chloride 108 mmol/L (98-107); Creatinine, Serum 0.86 mg/dL (0.55-1.02); EST Glomerular Filtration Rate 72 mL/min (>60); Est Glom Filt Rate - Afr Amer 87 mL/min (>60); Ferritin 109 ng/mL (8-252); Globulin 3.4 g/dL (2.2-4.2); Glucose 89 mg/dL (74-106); Potassium 3.6 mmol/L (3.5-5.1); Protein, Total 7.1 g/dL (6.4-8.2); Sodium Level 141 mmol/L (136-145); Thyroid Stim Hormone (TSH) 1.41 uIU/mL (0.358-3.74)
[2020-02-29 09:08] LABS: Alternaria tenuis <0.10 kU/L (Class 0); Ash, White <0.10 kU/L (Class 0); Aspergillus fumigatus <0.10 kU/L (Class 0); Bermuda Grass <0.10 kU/L (Class 0); Birch <0.10 kU/L (Class 0); Black Walnut <0.10 kU/L (Class 0); Cat Hair / Dander,Stand <0.10 kU/L (Class 0); Cedar, Mountain <0.10 kU/L (Class 0); Cladosporium herbarum <0.10 kU/L (Class 0); Cockroach, American <0.10 kU/L (Class 0); Cottonwood <0.10 kU/L (Class 0); D farinae Mite <0.10 kU/L (Class 0); D pteronyssinus <0.10 kU/L (Class 0); Dog Epithelia <0.10 kU/L (Class 0); Elm, American White <0.10 kU/L (Class 0); Immunoglobulin E 7 IU/mL (6-495); Maple/Box Elder <0.10 kU/L (Class 0); Mulberry, White <0.10 kU/L (Class 0); Oak, White <0.10 kU/L (Class 0); Pecan <0.10 kU/L (Class 0); Penicillium Notatum <0.10 kU/L (Class 0); Pigweed, Rough <0.10 kU/L (Class 0); Ragweed, Short/Common <0.10 kU/L (Class 0); Russian Thistle <0.10 kU/L (Class 0); Sheep Sorrel <0.10 kU/L (Class 0); Sycamore, American <0.10 kU/L (Class 0); Timothy Grass <0.10 kU/L (Class 0)
[2020-02-29 11:44] LABS: Mouse Urine <0.10 kU/L (Class 0)
== END ==
PROVIDERS: PCP Family Medicine; Visit Provider Family Medicine
DX: J31.0 Chronic rhinitis (principal); R53.83 Other fatigue
CPT/HCPCS: 36415; 80053; 82607; 82728; 82746; 82785; 84443; 85025; 86003

== ENCOUNTER → 2020-07-25 12:27 | Outpatient (CLI) | payer BC, SELFPAY ==
[2020-07-25 12:29] LABS: Lyme Ab Screen Interpretation REF LAB
[2020-07-25 15:47] LABS: Hematocrit 44.4 % (37-47); Hemoglobin 14.8 g/dL (12.0-15.0); Mean Corp Hgb Conc 33.3 g/dL (32-36); Mean Corpuscular Volume 93.1 fL (81-99); Mean Platelet Vol. 9.6 fl (6.2-12.0); Platelet Count 259 K/mm3 (150-450); RBC Distribution Width CV 11.9 % (11.6-14.6); RBC Distribution Width SD 40.6 fl (35.1-43.9); Red Blood Count 4.77 M/mm3 (4.2-5.4); Vitamin D,25 Hydroxy 39.5 ng/mL
[2020-07-25 16:14] LABS: ALB/GLOB Ratio 1.3 RATIO (0.9-2.4); AST(SGOT) 16 U/L (15-37); Alanine Aminotransfer ALT/SGPT 26 U/L (13-56); Albumin, Serum 4.1 g/dL (3.2-5.0); Alkaline Phosphatase 117 U/L (45-117); Anion Gap 6 (5-15); BUN 12 mg/dL (7-18); BUN/Creat Ratio 12.3 RATIO (10-20); CRP < 2.90 mg/L (0.0-3.0); Calcium,Total 9.1 mg/dL (8.5-10.1); Chloride 106 mmol/L (98-107); Creatinine, Serum 0.97 mg/dL (0.55-1.02); EST Glomerular Filtration Rate 62 mL/min (>60); Est Glom Filt Rate - Afr Amer 75 mL/min (>60); Globulin 3.2 g/dL (2.2-4.2); Glucose 81 mg/dL (74-106); Potassium 3.6 mmol/L (3.5-5.1); Protein, Total 7.3 g/dL (6.4-8.2); Sodium Level 138 mmol/L (136-145)
[2020-07-26 12:36] LABS: PTHIN 51.1 pg/mL (18.4-80.1)
[2020-07-28 15:06] LABS: ANTINUCLEAR ANTIBODIES DIRECT Positive (Negative); Lyme Scn Total Ab w/Rflx <0.91 ISR (0.00-0.90)
[2020-07-30 12:08] LABS: Anti-Centromere B Ab <0.2 AI (0.0-0.9); Anti-Chromatin <0.2 AI (0.0-0.9); Anti-Jo <0.2 AI (0.0-0.9); Anti-Scleroderma-70 AB <0.2 AI (0.0-0.9); Anti-ribosomal P Antibodies <0.2 AI (0.0-0.9); RNP Ab 1.3 AI (0.0-0.9); SJOGREN'S Anti-SS-A test < 0.2 AI (0.0-0.9); SJOGREN'S Anti-SS-B test < 0.2 AI (0.0-0.9); Smith Ab <0.2 AI (0.0-0.9); Smith/RNP Ab 0.3 AI (0.0-0.9)
[2020-07-30 14:40] LABS: Anti-dsDNA Ab 10 IU/mL (0-9)
== END ==
PROVIDERS: PCP Family Medicine; Visit Provider Family Medicine
DX: M25.50 Pain in unspecified joint (principal); R03.0 Elevated blood-pressure reading, without diagnosis of hypertension; R76.0 Raised antibody titer
CPT/HCPCS: 80053; 82306; 83970; 85027; 86038; 86140; 86225; 86235; 86618

== ENCOUNTER → 2020-07-30 15:06 | Outpatient (CLI) | payer BC, SELFPAY ==
--- NOTE | 2020-07-30 15:09 | CT_ITS ---
STUDY: LOW DOSE CT LUNG CANCER SCREENING REASON FOR EXAM: Female, 60 years old. Lung cancer screening, current smoker x40 years, 1/2 pack a day. Hx HTN RADIATION DOSAGE (If Supplied By Facility): CTDIvol = ( 2.01 ) mGy, DLP = ( 67.20 ) mGycm TECHNIQUE: No contrast was administered. Low dose technique was utilized (average mAS-38 and kVp 120). 1.25 mm axial source images with a slice interval of 1.25-mm were reconstructed in lung windows. 2.5 mm axial source images with a slice interval of 2.5-mm were reconstructed in lung windows. 5.0 mm axial source images with a slice interval of 5.0-mm were reconstructed in soft tissue windows. Nodule measured using lung windows on PACS and/or independent workstation with automated measurement of minimum and maximum diameter. Nodule measurement reported as average diameter rounded to the nearest whole number. Growth is defined as an increase ins size of greater than 1.5 mm. COMPARISON: None. NODULES: There is a 4.6 mm x 6.6 mm slightly lobulated nodule in the anterior superior aspect of the right middle lobe abutting the right minor fissure. Emphysema: Hyperinflation. Emphysematous changes in the upper lobes with a bullous formation. Increased linear markings in the lingula segment of the left upper lobe suggestive of scarring. Mild degree of scarring at the lung bases. Aorta: Minimal atherosclerotic plaque of the aortic arch. Coronary arteries: Unremarkable. Mediastinal nodes: Small benign appearing mediastinal lymph nodes. Other chest and abdominal findings: Degenerative changes of the thoracic spine. CT/Low Dose CT Lung Screening IMPRESSION: Lung-RADS category 3 - Continue screening with LDCT in 6 months. IMPORTANT NOTES FOR USE: ACR Lung-RADS Version 1.0 Assessment Categories Release Date: November 12, 2013 Category: Coded 0-4 bases on nodule(s) with highest degree of suspicion. Negative screen is defined as categories 1 and 2; a positive screen is defined as categories 3 and 4. Category 3 and 4A nodules that are unchanged on interval CT should be coded as category 2, and individuals returned to screening in 12 months. Category 4X: Category 3 or 4 nodules with additional imaging findings that increase the suspicion of lung cancer, such as spiculation, GGN that doubles in size in 1 year, enlarged lymph notes, etc. Category Modifiers: S (significant finding unrelated to lung cancer) and C (prior history of treated lung cancer) may be added to the 0-4 Lung-RADS Electronically Signed: Zaire Martin, at 15:49 EST , Service support ,
== END ==
PROVIDERS: PCP Family Medicine; Referring Provider Family Medicine; Visit Provider Family Medicine
DX: Z72.0 Tobacco use (principal); Z12.2 Encounter for screening for malignant neoplasm of respiratory organs
CPT/HCPCS: 71271

== ENCOUNTER → 2020-08-07 07:45 | Outpatient (CLI) | payer BC, SELFPAY ==
--- NOTE | 2020-08-07 07:47 | BI_ITS ---
MAMMOGRAPHY - BILATERAL SCREENING REASON FOR EXAM: Female, 60 years old. Routine annual screening examination. PERTINENT HISTORY: Grandmother with breast cancer. Occasional bilateral breast tenderness. TECHNIQUE: Digital bilateral breast tesfaye (3D mammographic acquisition) in the CC and MLO projections. 2-D mediolateral oblique (MLO) and craniocaudad (CC) views of both breasts were obtained. CAD: Full Field Digital Mammography with Computer Added Detection was performed. COMPARISON: Comparison is made with prior examination dated 02/09/2019 and 03/01/2017. FINDINGS: Breast Composition: The breasts are heterogeneously dense, which may obscure small masses. There are no dominant masses or suspicious calcifications. No other significant abnormalities are identified. There has been no significant change since the prior study. BI/SCREENING MAMM (CAD), BILAT IMPRESSION: Stable bilateral screening mammogram. Yearly follow-up mammogram recommended. (A) ASSESSMENT CATEGORY: BIRADS Category 1: Negative. A letter regarding these results will be sent to the patient by the facility within 30 days. Approximately 10% of breast cancers are not detected by mammography. A normal mammogram should not delay biopsy of a clinically suspicious abnormality. [id number] Electronically Signed: Zaire Martin MD at 9:36 EST , Service support ,
== END ==
PROVIDERS: PCP Family Medicine; Referring Provider Family Medicine; Visit Provider Family Medicine
DX: Z12.31 Encounter for screening mammogram for malignant neoplasm of breast (principal)
CPT/HCPCS: 77067

== ENCOUNTER → 2020-09-30 10:21 | Outpatient (CLI) | payer BC, SELFPAY ==
[2020-09-30 11:27] LABS: EXAGEN MAILED SPECIMEN
[2020-09-30 12:37] LABS: Color, Urine Yellow (Yellow); Glucose, Dipstick Normal (Normal); Ketone-Dipstick Negative (Negative); Leukocyte Esterase-Dipstick Negative /ul (Negative); Nitrite-Dipstick Negative (Negative); Occult Blood-Urine 10 /ul (Negative); Protein-Dipstick Negative (Negative); Urine Bilirubin Dipstick Negative (Negative); Urine Clarity Sl. Cloudy (Clear); Urine Urobilinogen Normal (Normal)
[2020-09-30 12:38] LABS: Absolute Lymphocyte Count 1.76 X10^3/uL (0.83-4.51); Absolute Neutrophil Count 4.9 X10^3/uL (2.0-7.7); Basophil# 0.02 X10^3/uL; Basophil% 0.3 % (0-1); Eosinophil# 0.09 X10^3/uL; Eosinophils% 1.3 % (0-5); Hematocrit 43.7 % (37-47); Hemoglobin 14.6 g/dL (12.0-15.0); Lymphocyte # 1.76 X10^3/ul (4.0); Lymphocyte % 24.8 % (19-41); Mean Corp Hgb Conc 33.4 g/dL (32-36); Mean Corpuscular Hgb 31.6 pg (27.0-32.0); Mean Corpuscular Volume 94.6 fL (81-99); Mean Platelet Vol. 9.5 fl (6.2-12.0); Monocyte# 0.31 X10^3/uL; Monocyte% 4.4 % (0-10); NRBC Flagged by Analyzer 0 % (0-5); Neutrophil # 4.89 X10^3/uL (2.7-7.7); Neutrophil % 68.9 % (47-70); Platelet Count 224 K/mm3 (150-450); Prothrombin Time (Protime)PT. 12.7 SECONDS (11.7-14.9); RBC Distribution Width CV 11.9 % (11.6-14.6); Red Blood Count 4.62 M/mm3 (4.2-5.4); White Blood Count 7.1 K/mm3 (4.4-11.0)
[2020-09-30 12:39] LABS: Partial Thromboplast Time 27.4 Seconds (24.1-36.2)
[2020-09-30 13:15] LABS: Protein, Urine (Random) 12.4 mg/dL (<11.9); Protein:Creat Ratio 173 mg/g CRE (0-200)
[2020-09-30 13:23] LABS: ALB/GLOB Ratio 1.2 RATIO (0.9-2.4); AST(SGOT) 14 U/L (15-37); Alanine Aminotransfer ALT/SGPT 26 U/L (13-56); Albumin, Serum 3.8 g/dL (3.2-5.0); Alkaline Phosphatase 121 U/L (45-117); Anion Gap 3 (5-15); BUN 21 mg/dL (7-18); BUN/Creat Ratio 19.1 RATIO (10-20); Chloride 108 mmol/L (98-107); EST Glomerular Filtration Rate 54 mL/min (>60); Est Glom Filt Rate - Afr Amer 65 mL/min (>60); Globulin 3.2 g/dL (2.2-4.2); Glucose 93 mg/dL (74-106); Sodium Level 140 mmol/L (136-145)
[2020-09-30 13:41] LABS: Hepatitis B Surface Antibody Non-Reactive; Hepatitis B Surface Antigen Non-Reactive (Nonreactive); Hepatitis C Antibody Non-Reactive (Nonreactive)
[2020-10-02 09:08] LABS: Dilute Prothrombin Time (dPT) 52.2 sec (0.0-55.0); Dilute Russell Viper Venom 34.2 sec (0.0-47.0); Hexagonal Phase Phospholipid 0 sec (0-11); PTT-LA 30.1 sec (0.0-51.9); dPT Confirm Ratio 1.49 Ratio (0.00-1.40)
[2020-10-02 10:37] LABS: Interpretation Comment: (.)
== END ==
PROVIDERS: PCP Family Medicine; Referring Provider Internal Medicine Rheumatology; Visit Provider Internal Medicine Rheumatology
DX: L40.59 Other psoriatic arthropathy (principal); R76.8 Other specified abnormal immunological findings in serum; M18.0 Bilateral primary osteoarthritis of first carpometacarpal joints; L40.8 Other psoriasis; I10 Essential (primary) hypertension; R51.9 Headache, unspecified; K21.9 Gastro-esophageal reflux disease without esophagitis; F32.9 Major depressive disorder, single episode, unspecified; F41.9 Anxiety disorder, unspecified; Z85.828 Personal history of other malignant neoplasm of skin
CPT/HCPCS: 36415; 80053; 81002; 82570; 84156; 85025; 85598; 85610; 85670; 85730; 86706; 86803; 87340

== ENCOUNTER 2020-10-03 14:32 | Outpatient (RCR) | payer BC, SELFPAY ==
[2020-10-03] MEDS: COVID-19 VACC, MRNA(PFIZER)/PF 30 MCG/0.3 ML SYRINGE IM (14:45)
[2020-10-24] MEDS: COVID-19 VACC, MRNA(PFIZER)/PF 30 MCG/0.3 ML SYRINGE IM (14:30)
== END 2020-10-03 23:59 ==
LOC: IMMUN 14:32
PROVIDERS: PCP Family Medicine; Referring Provider Family Medicine; Visit Provider Family Medicine
DX: Z23 Encounter for immunization (principal)
CPT/HCPCS: 0001A; 0002A; 91300

== ENCOUNTER → 2020-11-17 08:29 | Outpatient (CLI) | payer BC, SELFPAY ==
[2020-11-17 09:53] LABS: Absolute Lymphocyte Count 1.41 X10^3/uL (0.83-4.51); Absolute Neutrophil Count 3.2 X10^3/uL (2.0-7.7); Basophil# 0.01 X10^3/uL; Basophil% 0.2 % (0-1); Eosinophil# 0.08 X10^3/uL; Eosinophils% 1.6 % (0-5); Hematocrit 38.6 % (37-47); Hemoglobin 12.5 g/dL (12.0-15.0); Lymphocyte # 1.41 X10^3/ul (0.83-4.51); Lymphocyte % 27.8 % (19-41); Mean Corp Hgb Conc 32.4 g/dL (32-36); Mean Corpuscular Hgb 30.1 pg (27.0-32.0); Monocyte# 0.35 X10^3/uL; Monocyte% 6.9 % (0-10); NRBC Flagged by Analyzer 0 % (0-5); Neutrophil # 3.22 X10^3/uL (2.7-7.7); Neutrophil % 63.3 % (47-70); Platelet Count 204 K/mm3 (150-450); RBC Distribution Width CV 12.1 % (11.6-14.6); RBC Distribution Width SD 41.4 fl (35.1-43.9); Red Blood Count 4.15 M/mm3 (4.2-5.4); White Blood Count 5.1 K/mm3 (4.4-11.0)
[2020-11-17 10:54] LABS: ALB/GLOB Ratio 1.3 RATIO (0.9-2.4); AST(SGOT) 17 U/L (15-37); Alanine Aminotransfer ALT/SGPT 28 U/L (13-56); Albumin, Serum 3.4 g/dL (3.2-5.0); Alkaline Phosphatase 101 U/L (45-117); Anion Gap 8 (5-15); BUN 22 mg/dL (7-18); Calcium,Total 8.6 mg/dL (8.5-10.1); Chloride 108 mmol/L (98-107); Creatinine, Serum 1.05 mg/dL (0.55-1.02); EST Glomerular Filtration Rate 57 mL/min (>60); Est Glom Filt Rate - Afr Amer 69 mL/min (>60); Globulin 2.7 g/dL (2.2-4.2); Glucose 97 mg/dL (74-106); Potassium 4.2 mmol/L (3.5-5.1); Protein, Total 6.1 g/dL (6.4-8.2); Sodium Level 141 mmol/L (136-145)
== END ==
PROVIDERS: PCP Family Medicine; Referring Provider Internal Medicine Rheumatology; Visit Provider Internal Medicine Rheumatology
DX: L40.59 Other psoriatic arthropathy (principal); R76.8 Other specified abnormal immunological findings in serum; M18.0 Bilateral primary osteoarthritis of first carpometacarpal joints; L40.8 Other psoriasis; I10 Essential (primary) hypertension; R51.9 Headache, unspecified; K21.9 Gastro-esophageal reflux disease without esophagitis; F32.89 Other specified depressive episodes; F41.9 Anxiety disorder, unspecified; Z85.828 Personal history of other malignant neoplasm of skin
CPT/HCPCS: 36415; 80053; 85025

== ENCOUNTER → 2021-01-27 08:25 | Outpatient (CLI) | payer BC, SELFPAY ==
[2021-01-27 10:25] LABS: Absolute Lymphocyte Count 1.24 X10^3/uL (0.83-4.51); Absolute Neutrophil Count 3.8 X10^3/uL (2.0-7.7); Basophil# 0.01 X10^3/uL; Basophil% 0.2 % (0-1); Eosinophils% 1.8 % (0-5); Hematocrit 39.3 % (37-47); Hemoglobin 13.1 g/dL (12.0-15.0); Lymphocyte # 1.24 X10^3/ul (0.83-4.51); Lymphocyte % 22.6 % (19-41); Mean Corp Hgb Conc 33.3 g/dL (32-36); Mean Corpuscular Hgb 31.6 pg (27.0-32.0); Mean Corpuscular Volume 94.9 fL (81-99); Mean Platelet Vol. 9.4 fl (6.2-12.0); Monocyte# 0.29 X10^3/uL; Monocyte% 5.3 % (0-10); NRBC Flagged by Analyzer 0 % (0-5); Neutrophil # 3.83 X10^3/uL (2.7-7.7); Neutrophil % 69.9 % (47-70); Platelet Count 196 K/mm3 (150-450); RBC Distribution Width CV 12.7 % (11.6-14.6); RBC Distribution Width SD 43.5 fl (35.1-43.9); Red Blood Count 4.14 M/mm3 (4.2-5.4); White Blood Count 5.5 K/mm3 (4.4-11.0)
[2021-01-27 10:53] LABS: ALB/GLOB Ratio 1.3 RATIO (0.9-2.4); AST(SGOT) 18 U/L (15-37); Alanine Aminotransfer ALT/SGPT 26 U/L (13-56); Albumin, Serum 3.6 g/dL (3.2-5.0); Alkaline Phosphatase 93 U/L (45-117); Anion Gap 3 (5-15); BUN 10 mg/dL (7-18); BUN/Creat Ratio 10.6 RATIO (10-20); Calcium,Total 8.7 mg/dL (8.5-10.1); Chloride 108 mmol/L (98-107); Creatinine, Serum 0.94 mg/dL (0.55-1.02); EST Glomerular Filtration Rate 64 mL/min (>60); Est Glom Filt Rate - Afr Amer 78 mL/min (>60); Globulin 2.8 g/dL (2.2-4.2); Glucose 90 mg/dL (74-106); Potassium 4.2 mmol/L (3.5-5.1); Protein, Total 6.4 g/dL (6.4-8.2); Sodium Level 138 mmol/L (136-145)
== END ==
PROVIDERS: PCP Family Medicine; Referring Provider Internal Medicine Rheumatology; Visit Provider Internal Medicine Rheumatology
DX: L40.59 Other psoriatic arthropathy (principal); R76.8 Other specified abnormal immunological findings in serum; M18.0 Bilateral primary osteoarthritis of first carpometacarpal joints; L40.8 Other psoriasis; I10 Essential (primary) hypertension; R51.9 Headache, unspecified; K21.9 Gastro-esophageal reflux disease without esophagitis; F32.9 Major depressive disorder, single episode, unspecified; F41.9 Anxiety disorder, unspecified; Z85.828 Personal history of other malignant neoplasm of skin
CPT/HCPCS: 36415; 80053; 85025

== ENCOUNTER → 2021-03-11 10:24 | Outpatient (CLI) | payer BC, SELFPAY ==
[2021-03-11 12:18] LABS: Absolute Neutrophil Count 3.7 X10^3/uL (2.0-7.7); Basophil# 0.01 X10^3/uL; Basophil% 0.2 % (0-1); Eosinophil# 0.09 X10^3/uL; Eosinophils% 1.8 % (0-5); Hematocrit 39.2 % (37-47); Hemoglobin 13.3 g/dL (12.0-15.0); Lymphocyte % 16.3 % (19-41); Mean Corp Hgb Conc 33.9 g/dL (32-36); Mean Corpuscular Hgb 31.9 pg (27.0-32.0); Mean Platelet Vol. 9.1 fl (6.2-12.0); Monocyte# 0.29 X10^3/uL; Monocyte% 5.9 % (0-10); NRBC Flagged by Analyzer 0 % (0-5); Neutrophil % 75.6 % (47-70); Platelet Count 245 K/mm3 (150-450); Red Blood Count 4.17 M/mm3 (4.2-5.4); White Blood Count 4.9 K/mm3 (4.4-11.0)
[2021-03-11 12:36] LABS: PTHIN 37.8 pg/mL (18.4-80.1)
[2021-03-11 12:40] LABS: Vitamin B12 688 pg/mL (211-911); Vitamin D,25 Hydroxy 49.2 ng/mL
[2021-03-11 14:30] LABS: ALB/GLOB Ratio 1.1 RATIO (0.9-2.4); AST(SGOT) 23 U/L (15-37); Alanine Aminotransfer ALT/SGPT 31 U/L (13-56); Albumin, Serum 3.7 g/dL (3.2-5.0); Alkaline Phosphatase 121 U/L (45-117); Anion Gap 4 (5-15); BUN 14 mg/dL (7-18); BUN/Creat Ratio 15.3 RATIO (10-20); CPK Total, Creatine Kinase 37 U/L (26-192); Chloride 108 mmol/L (98-107); Creatinine, Serum 0.91 mg/dL (0.55-1.02); EST Glomerular Filtration Rate 66 mL/min (>60); Est Glom Filt Rate - Afr Amer 80 mL/min (>60); Folates, (Folic Acid) > 100.00 ng/mL (3.1-55.4); Globulin 3.3 g/dL (2.2-4.2); Glucose 82 mg/dL (74-106); Potassium 4.1 mmol/L (3.5-5.1); Sodium Level 139 mmol/L (136-145); Thyroid Stim Hormone (TSH) 0.63 uIU/mL (0.358-3.74)
== END ==
PROVIDERS: PCP Family Medicine; Referring Provider Family Medicine; Visit Provider Family Medicine
DX: L40.50 Arthropathic psoriasis, unspecified (principal); M19.90 Unspecified osteoarthritis, unspecified site
CPT/HCPCS: 36415; 80053; 82306; 82550; 82607; 82746; 83970; 84443; 85025

== ENCOUNTER → 2021-03-25 08:18 | Outpatient (CLI) | payer BC, SELFPAY ==
[2021-03-25 10:06] LABS: Absolute Lymphocyte Count 0.99 X10^3/uL (0.83-4.51); Basophil# 0.02 X10^3/uL; Basophil% 0.4 % (0-1); Eosinophil# 0.13 X10^3/uL; Eosinophils% 2.9 % (0-5); Hematocrit 37.6 % (37-47); Hemoglobin 12.8 g/dL (12.0-15.0); Lymphocyte # 0.99 X10^3/ul (0.83-4.51); Lymphocyte % 22.2 % (19-41); Mean Corpuscular Hgb 31.9 pg (27.0-32.0); Mean Corpuscular Volume 93.8 fL (81-99); Mean Platelet Vol. 8.9 fl (6.2-12.0); Monocyte% 6.7 % (0-10); NRBC Flagged by Analyzer 0 % (0-5); Neutrophil # 3.01 X10^3/uL (2.7-7.7); Neutrophil % 67.6 % (47-70); Platelet Count 219 K/mm3 (150-450); RBC Distribution Width SD 44.6 fl (35.1-43.9); Red Blood Count 4.01 M/mm3 (4.2-5.4); White Blood Count 4.5 K/mm3 (4.4-11.0)
[2021-03-25 10:20] LABS: ALB/GLOB Ratio 1.1 RATIO (0.9-2.4); AST(SGOT) 29 U/L (15-37); Alanine Aminotransfer ALT/SGPT 46 U/L (13-56); Albumin, Serum 3.3 g/dL (3.2-5.0); Alkaline Phosphatase 103 U/L (45-117); Anion Gap 6 (5-15); BUN 14 mg/dL (7-18); BUN/Creat Ratio 16.2 RATIO (10-20); Chloride 110 mmol/L (98-107); Creatinine, Serum 0.86 mg/dL (0.55-1.02); EST Glomerular Filtration Rate 71 mL/min (>60); Est Glom Filt Rate - Afr Amer 86 mL/min (>60); Globulin 3.1 g/dL (2.2-4.2); Glucose 99 mg/dL (74-106); Potassium 3.8 mmol/L (3.5-5.1); Protein, Total 6.4 g/dL (6.4-8.2); Sodium Level 141 mmol/L (136-145)
== END ==
PROVIDERS: PCP Family Medicine; Referring Provider Internal Medicine Rheumatology; Visit Provider Internal Medicine Rheumatology
DX: L40.59 Other psoriatic arthropathy (principal); R76.8 Other specified abnormal immunological findings in serum; M18.0 Bilateral primary osteoarthritis of first carpometacarpal joints; L40.8 Other psoriasis; I10 Essential (primary) hypertension; R51.9 Headache, unspecified; K21.9 Gastro-esophageal reflux disease without esophagitis; F32.9 Major depressive disorder, single episode, unspecified; F41.9 Anxiety disorder, unspecified; Z85.828 Personal history of other malignant neoplasm of skin; Z79.899 Other long term (current) drug therapy
CPT/HCPCS: 36415; 80053; 85025

== ENCOUNTER → 2021-06-15 08:29 | Outpatient (CLI) | payer BC, SELFPAY ==
[2021-06-15 10:12] LABS: Absolute Lymphocyte Count 1.22 X10^3/uL (0.83-4.51); Absolute Neutrophil Count 3.3 X10^3/uL (2.0-7.7); Basophil# 0.02 X10^3/uL; Basophil% 0.4 % (0-1); Hematocrit 39.7 % (37-47); Hemoglobin 13.8 g/dL (12.0-15.0); Lymphocyte # 1.22 X10^3/ul (0.83-4.51); Lymphocyte % 24.4 % (19-41); Mean Corp Hgb Conc 34.8 g/dL (32-36); Mean Corpuscular Hgb 32.2 pg (27.0-32.0); Mean Corpuscular Volume 92.5 fL (81-99); Mean Platelet Vol. 9.2 fl (6.2-12.0); Monocyte# 0.33 X10^3/uL; Monocyte% 6.6 % (0-10); NRBC Flagged by Analyzer 0 % (0-5); Neutrophil # 3.31 X10^3/uL (2.7-7.7); Neutrophil % 66.2 % (47-70); Platelet Count 210 K/mm3 (150-450); RBC Distribution Width CV 12.1 % (11.6-14.6); RBC Distribution Width SD 40.3 fl (35.1-43.9); Red Blood Count 4.29 M/mm3 (4.2-5.4)
[2021-06-15 10:42] LABS: ALB/GLOB Ratio 1.1 RATIO (0.9-2.4); AST(SGOT) 11 U/L (15-37); Alanine Aminotransfer ALT/SGPT 25 U/L (13-56); Albumin, Serum 3.5 g/dL (3.2-5.0); Alkaline Phosphatase 89 U/L (45-117); Anion Gap 8 (5-15); BUN 22 mg/dL (7-18); BUN/Creat Ratio 24.7 RATIO (10-20); Calcium,Total 9.1 mg/dL (8.5-10.1); Chloride 108 mmol/L (98-107); Creatinine, Serum 0.89 mg/dL (0.55-1.02); EST Glomerular Filtration Rate 68 mL/min (>60); Est Glom Filt Rate - Afr Amer 83 mL/min (>60); Globulin 3.1 g/dL (2.2-4.2); Glucose 74 mg/dL (74-106); Potassium 4.1 mmol/L (3.5-5.1); Protein, Total 6.6 g/dL (6.4-8.2); Sodium Level 139 mmol/L (136-145)
== END ==
PROVIDERS: PCP Family Medicine; Referring Provider Internal Medicine Rheumatology; Visit Provider Internal Medicine Rheumatology
DX: L40.59 Other psoriatic arthropathy (principal); R76.8 Other specified abnormal immunological findings in serum; M18.0 Bilateral primary osteoarthritis of first carpometacarpal joints; L40.8 Other psoriasis; I10 Essential (primary) hypertension; R51.9 Headache, unspecified; K21.9 Gastro-esophageal reflux disease without esophagitis; F32.9 Major depressive disorder, single episode, unspecified; F41.9 Anxiety disorder, unspecified; Z85.828 Personal history of other malignant neoplasm of skin; Z79.899 Other long term (current) drug therapy
CPT/HCPCS: 36415; 80053; 85025

== ENCOUNTER → 2021-07-06 | Outpatient (CLI) | payer BC, SELFPAY | END | disposition home or self-care (01) | LOC: LABSPEC 07-07 10:32 | PROVIDERS: PCP Family Medicine; Referring Provider Family Medicine; Visit Provider Family Medicine | DX: J39.9 Disease of upper respiratory tract, unspecified (principal) | CPT/HCPCS: 87633; 87635; U0005; U0003 ==

== ENCOUNTER 2021-08-17 11:28 | Outpatient (CLI) | payer BC, SELFPAY ==
[2021-08-17 15:54] LABS: Anion Gap 8 (5-15); BUN 24 mg/dL (7-18); BUN/Creat Ratio 26.6 RATIO (10-20); Calcium,Total 9.4 mg/dL (8.5-10.1); Chloride 101 mmol/L (98-107); EST Glomerular Filtration Rate 67 mL/min (>60); Est Glom Filt Rate - Afr Amer 82 mL/min (>60); Glucose 99 mg/dL (74-106); Magnesium 2.1 mg/dL (1.6-2.6); Potassium 3.3 mmol/L (3.5-5.1); Sodium Level 136 mmol/L (136-145)
== END 2021-08-17 23:59 | disposition short-term general hospital (02) ==
LOC: MFPLAB 11:30
PROVIDERS: PCP Family Medicine; Visit Provider Family Medicine
DX: Z79.899 Other long term (current) drug therapy (principal)
CPT/HCPCS: 36415; 80048; 83735

== ENCOUNTER 2021-09-07 08:50 | Outpatient (CLI) | payer BC, SELFPAY ==
[2021-09-07 09:59] LABS: Absolute Lymphocyte Count 1.55 X10^3/uL (0.83-4.51); Absolute Neutrophil Count 3.8 X10^3/uL (2.0-7.7); Basophil# 0.02 X10^3/uL; Basophil% 0.3 % (0-1); Eosinophil# 0.09 X10^3/uL; Eosinophils% 1.5 % (0-5); Hematocrit 38.8 % (37-47); Hemoglobin 13.6 g/dL (12.0-15.0); Lymphocyte # 1.55 X10^3/ul (0.83-4.51); Mean Corp Hgb Conc 35.1 g/dL (32-36); Mean Corpuscular Hgb 32.9 pg (27.0-32.0); Mean Corpuscular Volume 93.7 fL (81-99); Mean Platelet Vol. 9.3 fl (6.2-12.0); Monocyte# 0.44 X10^3/uL; Monocyte% 7.4 % (0-10); NRBC Flagged by Analyzer 0 % (0-5); Neutrophil # 3.84 X10^3/uL (2.7-7.7); Neutrophil % 64.5 % (47-70); Platelet Count 222 K/mm3 (150-450); RBC Distribution Width CV 12.7 % (11.6-14.6); RBC Distribution Width SD 43.5 fl (35.1-43.9); Red Blood Count 4.14 M/mm3 (4.2-5.4)
[2021-09-07 10:37] LABS: Albumin, Serum 3.6 g/dL (3.2-5.0); BUN 18 mg/dL (7-18); BUN/Creat Ratio 21.5 RATIO (10-20); Creatinine, Serum 0.84 mg/dL (0.55-1.02); EST Glomerular Filtration Rate 73 mL/min (>60); Est Glom Filt Rate - Afr Amer 89 mL/min (>60); Glucose 75 mg/dL (74-106); Protein, Total 6.7 g/dL (6.4-8.2)
[2021-09-07 10:38] LABS: ALB/GLOB Ratio 1.2 RATIO (0.9-2.4); AST(SGOT) 16 U/L (15-37); Alanine Aminotransfer ALT/SGPT 31 U/L (13-56); Alkaline Phosphatase 104 U/L (45-117); Anion Gap 5 (5-15); Chloride 109 mmol/L (98-107); Globulin 3.1 g/dL (2.2-4.2); Potassium 4.1 mmol/L (3.5-5.1); Sodium Level 139 mmol/L (136-145)
== END 2021-09-07 23:59 | disposition home or self-care (01) ==
LOC: MTLAB 08:53
PROVIDERS: PCP Family Medicine; Referring Provider Internal Medicine Rheumatology; Visit Provider Internal Medicine Rheumatology
DX: F41.9 Anxiety disorder, unspecified (principal); L40.59 Other psoriatic arthropathy; M18.0 Bilateral primary osteoarthritis of first carpometacarpal joints; I10 Essential (primary) hypertension; K21.9 Gastro-esophageal reflux disease without esophagitis; R51.9 Headache, unspecified; F32.9 Major depressive disorder, single episode, unspecified; L40.8 Other psoriasis; R76.8 Other specified abnormal immunological findings in serum; Z85.828 Personal history of other malignant neoplasm of skin; Z79.899 Other long term (current) drug therapy
CPT/HCPCS: 36415; 80053; 85025

== ENCOUNTER 2021-09-24 08:11 | Outpatient (CLI) | payer BC, SELFPAY ==
--- NOTE | 2021-09-24 08:13 | BI_ITS ---
MAMMOGRAPHY - BILATERAL SCREENING REASON FOR EXAM: Female, 61 years old. Routine annual screening examination. PERTINENT HISTORY: Grandmother with breast cancer. Bilateral breast tenderness. TECHNIQUE: Digital bilateral breast ashley (3D mammographic acquisition) in the CC and MLO projections. 2-D mediolateral oblique (MLO) and craniocaudad (CC) views of both breasts were obtained. CAD: Full Field Digital Mammography with Computer Added Detection was performed. COMPARISON: Comparison is made with prior study dated 2020 and 08/12/2018. FINDINGS: Breast Composition: The breasts are heterogeneously dense, which may obscure small masses. There are no dominant masses or suspicious calcifications. No other significant abnormalities are identified. There has been no significant change since the prior study. BI/SCRN MAMM (CAD)W/ASHLEY BILAT IMPRESSION: Stable bilateral screening mammogram. Yearly follow-up mammogram recommended. (A) ASSESSMENT CATEGORY: BIRADS Category 1: Negative. A letter regarding these results will be sent to the patient by the facility within 30 days. Approximately 10% of breast cancers are not detected by mammography. A normal mammogram should not delay biopsy of a clinically suspicious abnormality. [id number] Electronically Signed: Zaire Martin MD at 9:17 EST ,
== END 2021-09-24 23:59 | disposition home or self-care (01) ==
LOC: OPBI 08:12
PROVIDERS: PCP Family Medicine; Visit Provider Family Medicine
DX: Z12.31 Encounter for screening mammogram for malignant neoplasm of breast (principal)
CPT/HCPCS: 77063; 77067

== ENCOUNTER 2021-10-09 16:41 | Outpatient (CLI) | payer BC, SELFPAY ==
--- NOTE | 2021-10-09 16:44 | CT_ITS ---
STUDY: CT CHEST WITHOUT CONTRAST- LOW DOSE SCREENING PROTOCOL REASON FOR EXAM: Female, 61 years old. Former smoker. Quit smoking less than 1 year ago. 48 pack per year history. No current symptoms of lung cancer or pulmonary infection. Shared decision-making with referring PCP documented in patient''s record. RADIATION DOSAGE (If Supplied By Facility): CTDIvol = ( 2.39 ) mGy, DLP = ( 82.80 ) mGycm TECHNIQUE: Low dose screening CT examination performed from the base of the neck to the upper abdomen. Sagittal and coronal reformatted images performed. Sagittal and coronal MIP images provided. The measurements provided are average, rounded measurements per ACR guidelines. COMPARISON: 07/30/2020 FINDINGS: Mild emphysema. No noncalcified nodule or mass. Linear scar in the inferior lingula and right lower lobe. There is no demonstrated pleural abnormality. Normal heart and pericardium. There are calcifications of the coronary arteries. Normal mediastinum. Normal hilar regions. Normal unenhanced pulmonary arteries. Normal aorta arch and descending thoracic aorta. Normal osseous structures. There is no demonstrated abnormality of the visualized upper abdomen. CT/Low Dose CT Lung Screening IMPRESSION: 1. No significant indeterminate incidental findings requiring additional imaging. 2. Incidental findings include scarring. ASSESSMENT CATEGORY: LungRADS 1 - Negative. Continue annual screening with LDCT in 12 months, per established ACR guidelines. Electronically Signed: Phani Aguilar MD at 17:12 EDT ,
== END 2021-10-09 23:59 | disposition home or self-care (01) ==
LOC: CT 16:42
PROVIDERS: PCP Family Medicine; Referring Provider Family Medicine; Visit Provider Family Medicine
DX: F17.201 Nicotine dependence, unspecified, in remission (principal)
CPT/HCPCS: 71271

== ENCOUNTER 2021-10-26 15:12 | Emergency (ER) | payer BC, SELFPAY ==
[2021-10-26 15:13] VITALS: BP 138/85; PULSE 120; RESP 18; TEMP 36.5; O2SAT 94; BMI 24.2
--- NOTE | 2021-10-26 15:29 | EKG12_ITS ---
Test Reason : DYSRHYTHMIA Blood Pressure : / mmHG Vent. Rate : 091 BPM Atrial Rate : 091 BPM P-R Int : 134 ms QRS Dur : 084 ms QT Int : 376 ms P-R-T Axes : 039 033 037 degrees QTc Int : 462 ms Normal sinus rhythm Nonspecific ST abnormality Abnormal ECG Confirmed by KANU CORONA, AKASH ([id number]), editorial assistant SADIA MANDEL ([id number]) on 10/28/2021 11:39:25 AM Referred By: VANNA Confirmed By:AKASH BOBBY MD
--- NOTE | 2021-10-26 15:43 | EDS_ITS ---
HPI History of Present Illness Chief Complaint: Dizziness Detail of Chief Complaint: Dizziness, which the patient defines as super lightheadedness Informant: patient Onset/Context/Timing Onset: Hours Context: Sudden Onset Timing: Continuous and Waxes and wanes Quality: Lightheaded like I am going to pass out Current Severity: Mild Maximum Severity: Severe Worsened by: Upright position Relieved by: Nothing Associated Symptoms Associated Symptoms: Nausea Narrative Narrative: Patient is a 61-year-old woman who presents with super lightheadedness . She denies black or maroon-colored stool. She denies fever, chills night sweats. She denies ocular, visual auditory symptoms. She denies trouble with speech or swallowing. She denies chest pain of any type. She denies shortness of breath or difficulty breathing. She denies vomiting. She denies urologic symptoms. She is wearing a fit bit. She assessed her heart rate and it was 114 when she was in the grocery store however it has that she was running . Resting heart rate is approximately 50. Prior similar symptoms: Yes (Not as severe) Recent Illness/Hospitalization: No PFSH PFSH Medical History (Updated 10/26/21 @ 17:[address] Yobani Mesa MD) HTN (hypertension) Psoriatic arthritis Home Medications bupropion HCl 300 mg 24 hr tablet, extended release 300 mg PO QAM 10/06/17 [History Last Taken Unknown] meloxicam 15 mg tablet 15 mg PO QDAY 10/06/17 [History Last Taken Unknown] amlodipine 10/26/21 [History Last Taken Unknown] bupropion HCl mg PO 10/26/21 [History Last Taken Unknown] losartan 10/26/21 [History Last Taken Unknown] Allergy/AdvReac Type Severity Reaction Status Date / Time No Known Allergies Allergy Verified 10/26/21 15:18 Surgical History ectopic surgery Social History (Updated 10/26/21 @ 15:[address] Yobani Mesa MD) household members: none Smoking Status: Former smoker alcohol intake: current alcohol intake frequency: holidays/special occasions only ROS ROS ED Constitutional Constitutional ED: Denies chills, fever(s), subjective, sweats or weight loss Eyes Eyes: Denies blurry vision, change in vision or diplopia ENT ENT ED: Denies ear pain, rhinorrhea or sore throat Cardiovascular Cardiovascular: Denies chest pain, palpitations or racing heartbeat Respiratory/Chest Respiratory/Chest: Denies cough, dyspnea or dyspnea on exertion Gastrointestinal Gastrointestinal: Reports nausea; Denies abdominal pain, constipation, diarrhea, melena or vomiting Genitourinary Genitourinary ED: Denies dysuria, hematuria or urinary frequency Musculoskeletal Musculoskeletal: Denies arthralgias, back pain, myalgias or neck pain Integumentary Denies abscess, Abrasions or rash Neurologic Neurologic: Denies headache(s), paresthesias or weakness Endocrine Endocrinology: Denies polydipsia, polyphagia or polyuria Hematologic/Lymphatic Hematologic/Lymphatic: Reports anemia; Denies easy bruising EXAM Physical Exam Const Vital Signs: 10/26/21 15:13 10/26/21 15:48 10/26/21 15:52 Temperature 97.7 F L Temperature Source Temporal Pulse Rate 120 H Pulse Rate [Lying] 90 Pulse Rate [Sitting (for 1 minute prior to obtaining)] 97 Pulse Rate [Standing (for 1 minute prior to obtaining)] 90 Respiratory Rate 18 Respiratory Effort Normal Respiratory Pattern Normal Blood Pressure 138/85 H Blood Pressure [Lying] 136/71 H Blood Pressure [Sitting (for 1 minute prior to obtaining)] 152/87 H Blood Pressure [Standing (for 1 minute prior to obtaining)] 153/96 H Blood Pressure Mean 102 Blood Pressure Mean [Lying] 92 Blood Pressure Mean [Sitting (for 1 minute prior to obtaining)] 108 Blood Pressure Mean [Standing (for 1 minute prior to obtaining)] 115 Pulse Ox 94 Oxygen Delivery Method Room Air 10/26/21 17:28 10/26/21 17:38 Temperature Temperature Source Pulse Rate 94 Pulse Rate [Lying] 86 Pulse Rate [Sitting (for 1 minute prior to obtaining)] 92 Pulse Rate [Standing (for 1 minute prior to obtaining)] 102 H Respiratory Rate 21 H Respiratory Effort Respiratory Pattern Blood Pressure 143/76 H Blood Pressure [Lying] 132/73 H Blood Pressure [Sitting (for 1 minute prior to obtaining)] 143/69 H Blood Pressure [Standing (for 1 minute prior to obtaining)] 153/91 H Blood Pressure Mean 98 Blood Pressure Mean [Lying] 92 Blood Pressure Mean [Sitting (for 1 minute prior to obtaining)] 93 Blood Pressure Mean [Standing (for 1 minute prior to obtaining)] 111 Pulse Ox 97 Oxygen Delivery Method Room Air Orthostatic vital signs reveal an increase in pressure from supine to standing. She did have a 23 beat increase from supine to standing. This is equivocal. Positive well nourished and well developed General Appearance ED: well developed and NAD; Negative for cyanotic, diaphoretic or pallor HEENT Reports TM's clear and moist mucous membranes HEENT Narrative: Uvula midline. No angioedema. No erythema exudate in the posterior pharynx. Negative for trauma or tenderness Tympanic Membrane ED: Yes TM's clear Eyes PERRL and EOMs intact bilaterally General Eye ED: Negative for pale conjunctiva or scleral icterus Neck no lymphadenopathy, supple and no JVD Chest Wall palpation of chest normal Resp normal respiratory effort and clear to auscultation bilaterally Effort and Inspection: Negative for pain with movement Cardio regular rate, regular rhythm, S1 normal heart sound, S2 normal heart sound and no murmurs GI normal to inspection, nondistended, normoactive bowel sounds and non-tender; Negative for hepatosplenomegaly GI Narrative: There is no pulsatile mass or abdominal bruit. Palpation: soft; Negative for mass Back/Spine no CVA tenderness Thoracic Spine / Upper Back: Negative for thoracic spinal tenderness or paraspinal muscle tenderness Lumbar Spine / Lower Back: Negative for lumbar spinal tenderness Extremity normal to inspection General Extremety ED: Negative for edema or tenderness General Extremity: Negative for edema Neuro oriented x3, CN's II-XII intact bilaterally and no sensory deficits noted Neuro Narrative: There is no dysmetria. There is no clonus or Babinski sign. Sensorium / Orientation: alert Motor Exam: strength 5/5 throughout Psych mental status grossly normal Skin no rashes or lesions noted and no wounds General Skin Exam: Negative for jaundice or pallor MDM MDM MDM Narrative Medical decision making narrative: Since patient does not complain of spinning or vertigo and lightheaded will perform orthostatics. She has history of anemia on iron CBC was obtained assess H&H and BMP to assess BUN to creatinine ratio that would suggest a GI bleed even though she denies black or maroon-colored stool. She states is dark because she is on iron. Second tilt test was performed and patient was asymptomatic. She was discharged to home. Lab Data Attestation: I reviewed the patient's lab results. Lab results narrative: CBC, H&H and differential are unremarkable. Basic metabolic panel is remarkable for a glucose of 150 only. Labs: Laboratory Results - last 24 hr 10/26/21 10/26/21 15:40 15:40 WBC 5.6 RBC 4.40 Hgb 14.6 Hct 40.5 MCV 92.0 MCH 33.2 H MCHC 36.0 RDW Std Deviation 40.3 RDW Coeff of Margot 12.0 Plt Count 224 MPV 8.9 Immature Gran % (Auto) 0.200 Neut % (Auto) 58.8 Lymph % (Auto) 31.9 [place] % (Auto) 6.6 Eos % (Auto) 2.1 Baso % (Auto) 0.4 Absolute Neuts (auto) 3.3 Absolute Lymphs (auto) 1.80 Nucleated RBC % 0 Sodium 138 Potassium 3.7 Chloride 106 Carbon Dioxide 25.0 Anion Gap 7 BUN 16 Creatinine 1.00 Estim Creat Clear Calc 55.31 Est GFR (MDRD) Af Amer 72 Est GFR (MDRD) Non-Af 60 BUN/Creatinine Ratio 16.0 Glucose 150 H Calcium 9.1 EKG Initial EKG: Attestation: I personally reviewed and interpreted this EKG as follows: Interpretation: Sinus Rhythm (Trickle rate is 91. OR interval is 134 ms. QRS duration 84 ms. QT duration 276 ms. [place] is normal. EKG is normal. There is slight artifact since patient has tremors.) Discharge Plan Triage Chief Complaint: Dizziness ED Provider: Yobani Mesa Dx/Rx/DC Orders Clinical Impression: Orthostatic hypotension, Mild dehydration Instructions: ED Hypotension, Orthostatic Prescriptions: No Action bupropion HCl [Wellbutrin XL] 300 mg tablet extended release 24 hr 300 mg PO QAM RF: 0 meloxicam 15 mg tablet 15 mg PO QDAY RF: 0 losartan 50 mg tablet RF: 0 amlodipine 5 mg tablet RF: 0 bupropion HCl 150 mg tablet extended release 24 hr PO RF: 0 Primary Care Provider: You Peraza Referrals: You Peraza MD [Primary Care Provider] - As Needed Disposition Disposition: Home, Self Care
[2021-10-26 15:50] LABS: Absolute Neutrophil Count 3.3 X10^3/uL (2.0-7.7); Basophil# 0.02 X10^3/uL; Basophil% 0.4 % (0-1); Eosinophil# 0.12 X10^3/uL; Eosinophils% 2.1 % (0-5); Hematocrit 40.5 % (37-47); Hemoglobin 14.6 g/dL (12.0-15.0); Lymphocyte % 31.9 % (19-41); Mean Corpuscular Hgb 33.2 pg (27.0-32.0); Mean Platelet Vol. 8.9 fl (6.2-12.0); Monocyte# 0.37 X10^3/uL; Monocyte% 6.6 % (0-10); NRBC Flagged by Analyzer 0 % (0-5); Neutrophil # 3.32 X10^3/uL (2.7-7.7); Neutrophil % 58.8 % (47-70); Platelet Count 224 K/mm3 (150-450); RBC Distribution Width SD 40.3 fl (35.1-43.9); White Blood Count 5.6 K/mm3 (4.4-11.0)
[2021-10-26 15:52] VITALS: BP 136/71; BP 152/87; BP 153/96; PULSE 90; PULSE 97
[2021-10-26 15:59] LABS: Anion Gap 7 (5-15); BUN 16 mg/dL (7-18); Calcium,Total 9.1 mg/dL (8.5-10.1); Chloride 106 mmol/L (98-107); EST Glomerular Filtration Rate 60 mL/min (>60); Est Glom Filt Rate - Afr Amer 72 mL/min (>60); Estimated Creatinine Clearance 55.31 ml/min; Glucose 150 mg/dL (74-106); Potassium 3.7 mmol/L (3.5-5.1); Sodium Level 138 mmol/L (136-145)
[2021-10-26] MEDS: 0.9% Normal Saline 1,000 ML 1000 ML IV (16:43)
[2021-10-26 17:28] VITALS: BP 143/76; PULSE 94; RESP 21; O2SAT 97
[2021-10-26 17:38] VITALS: BP 132/73; BP 143/69; BP 153/91; PULSE 102; PULSE 86; PULSE 92
== END 2021-10-26 18:01 | disposition home or self-care (01) ==
PROVIDERS: Emergency Provider Emergency Medicine; PCP Family Medicine; Visit Provider Emergency Medicine
DX: I95.1 Orthostatic hypotension (principal); L40.50 Arthropathic psoriasis, unspecified; E86.0 Dehydration; I10 Essential (primary) hypertension; Z87.891 Personal history of nicotine dependence; Z79.899 Other long term (current) drug therapy
CPT/HCPCS: 80048; 85025; 93005; 96360; 99285; J7030; A4216

== ENCOUNTER → 2022-01-16 | Outpatient (CLI) | payer BC, SELFPAY ==
[2022-01-16 08:27] LABS: Absolute Lymphocyte Count 1.66 X10^3/uL (0.83-4.51); Absolute Neutrophil Count 4.3 X10^3/uL (2.0-7.7); Basophil# 0.01 X10^3/uL; Basophil% 0.2 % (0-1); Eosinophil# 0.14 X10^3/uL; Eosinophils% 2.1 % (0-5); Hemoglobin 14.4 g/dL (12.0-15.0); Lymphocyte # 1.66 X10^3/ul (0.83-4.51); Lymphocyte % 25.4 % (19-41); Mean Corp Hgb Conc 34.3 g/dL (32-36); Mean Corpuscular Hgb 31.6 pg (27.0-32.0); Mean Corpuscular Volume 92.1 fL (81-99); Mean Platelet Vol. 8.9 fl (6.2-12.0); Monocyte% 6.1 % (0-10); NRBC Flagged by Analyzer 0 % (0-5); Neutrophil % 65.9 % (47-70); Platelet Count 265 K/mm3 (150-450); RBC Distribution Width CV 11.8 % (11.6-14.6); RBC Distribution Width SD 39.7 fl (35.1-43.9); Red Blood Count 4.56 M/mm3 (4.2-5.4); White Blood Count 6.5 K/mm3 (4.4-11.0)
[2022-01-16 08:47] LABS: Anion Gap 3 (5-15); BUN 12 mg/dL (7-18); BUN/Creat Ratio 13.9 RATIO (10-20); Calcium,Total 8.9 mg/dL (8.5-10.1); Chloride 110 mmol/L (98-107); Creatinine, Serum 0.86 mg/dL (0.55-1.02); EST Glomerular Filtration Rate 71 mL/min (>60); Est Glom Filt Rate - Afr Amer 86 mL/min (>60); Glucose 102 mg/dL (74-106); Potassium 4.2 mmol/L (3.5-5.1); Sodium Level 141 mmol/L (136-145)
== END | disposition home or self-care (01) ==
LOC: LAB 07:54
PROVIDERS: PCP Family Medicine; Referring Provider Physician Assistant Surgical; Visit Provider Physician Assistant Surgical
DX: Z01.818 Encounter for other preprocedural examination (principal)
CPT/HCPCS: 36415; 80048; 85025

== ENCOUNTER 2022-03-31 08:00 | Outpatient (RCR) | payer BC, SELFPAY ==
--- NOTE | 2022-02-19 08:05 | HP.OTEVAL ---
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 Date of Evaluation: 02/18/22 Occupational Therapist: Isabella Viera, OTR/Ray, CHT - Subjective This 62 year old female was seen for OT eval with dx, 1st compartment CMC arthritis- sx on 01/22/2022. casted 4 weeks-. Pt states she had right thumb pain for 10-15 years. pt states had one cortisone shot but poor results. 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 pt reports limitations with all ADLs and IADls as she can not use her right hand. - Pain right thumb 4 Pain Intensity Range: 3 - ROM Wrist: right 45/30 left 70/65 CMC: right 5* left 20* MP: right 10* left 30* IP: right 20* left 70* - Strength Research Worker Encyclopedia: right NT left 60# Lateral Pinch: right NT left 10# Tripod Pinch: right NT left 4# Strength Comments: will test right strength at later date - Sensation Sensation Comments: denies - Quick DASH-Disab of Arm,Shoulder& Hand Quick DASH Score: 70.0000 - Hand/Wrist Evaluation Total Score of Pain & Functional Sections: 60 - Goals Goal:100% adherence to protocol: Yes Comment: cmc arthroplasty protocol Goal:Daily scar massage when approriate: Yes Goal:ROM equal to unaffected hand: Yes Goal:Research Worker Encyclopedia/Pinch strength at least 75% of unaffected hand: Yes Goal:No pain with affected hand use: Yes Goal:Full use of affected hand in daily activities including: Yes Goal:Decrease scar hypersensitivity: Yes - Rehabilitation General Assessment: pt arrives 4 weeks s/p from CMC arthroplasty- pt demo limited ROM weakness and newly healing structures has increased her need of assistance with ADLs and IADLs. Pt would benefit from skilled OT services 1-2x week for 8 weeks to ensure pt returns to her PLOF. Today therapist erasmo. custom thumb spica orthosis to provide protection and support of reconstructed joint- ed.on use care and precautions- pt demo ind. doffing and donning of orthosis- therapist also ed. pt on short arch wrist ROM and supported CMC MP and IP ROM - scar mtg and precautions. pt demo understanding and agree to POC. Rehabilitation Potential: Good - Anticipated Interventions A/AAROM/PROM, Strengthening, Scar Care, Triggerpoint Release, Desensitization, Modalities, Orthoses, Joint Protection/Energy Conservation, Ergonomic Education, Fine Motor Coord/Rodolfo, Education re assistive Equipment, Education re Diagnosis, Home Program - Visit Plan Frequency: 1-2x /Week Duration: 6 Weeks General Plan: CMC arthroplasty protocol. Week 2: exercise- AROM performed for digits and thumb IP joint only- initiate scar mtg. Week 4: Begin AROM exercises for wrist thumb CMC- joint- cont. scar mtg/edema control (modalities as indicated for pain and edema. Week 6: splint D/C and issue comfort cool fitted splint if needed- discontinue splint by 8 weeks post-operative except may wear during heavy activates pm. Exercise: start gentle strengthening(thera-putty), progress as tolerated. Progress to wrist strengthening and heavier prehension tasks at 8 weeks post-operative. Avoid forceful extension of thumb. Expectations: Most patients are treated with a Home Program and checked after each MD visit for program progression 2x weekly for 4-6 weeks for symptomatic patients or those returning to heavier work demands. 2 months to resume normal activities, 3 months for strenuous. 3-6 months to reach optimum results. slight decrease in pinch and utility driver strength. generally, gain 70% of strength and motion of unoperated hand. TEXT: Thank you for the opportunity to evaluate your patient. For Medicare and Medicare HMO plans, please review the plan of care and approve it. It will need to be FAXED BACK to us at [phone] for Medicare purposes. Please let me know if there are questions or concerns regarding this plan of care. Physician Signature: Date:
--- NOTE | 2022-03-17 08:32 | HP.OTREVAL ---
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 Please see the progress note below for an update on the occupational therapy plan of care! Subjective: pt arrives 7 weeks s/p from right cmc arthroplasty -. pt states she is performing ADLs but is careful she doesn't. Objective/Function: right business intern strength 30#. right lateral pinch 2#. right MP flex 20*. right IP flexion 50* Plan Frequency: 1-2x /Week Duration: 2 Weeks Plan: pt doing well- will continue with PRE for business intern and pinch Goals - Goals Goal:100% adherence to protocol: Yes Goal:Daily scar massage when approriate: Yes Goal:ROM equal to unaffected hand: Yes Goal:Director Of Event Sales/Pinch strength at least 75% of unaffected hand: Yes Goal:No pain with affected hand use: Yes Goal:Full use of affected hand in daily activities including: Yes Goal:Decrease scar hypersensitivity: Yes Anticipated Interventions Anticipated Interventions: A/AAROM/PROM, Strengthening, Scar Care, Triggerpoint Release, Desensitization, Modalities, Orthoses, Joint Protection/Energy Conservation, Ergonomic Education, Fine Motor Coord/Rodolfo, Education re assistive Equipment, Education re Diagnosis, Home Program Please do not hesitate to contact me at [phone] by phone or if you have questions or concerns regarding this new plan of care! Sincerely, Isabella Viera, TOMR/L, CHT
--- NOTE | 2022-03-31 08:30 | HP.OTDCSUM ---
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 Please see the following information for a summary of their discharge status. 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 right lateral pinch 2# left hand 10#. right CMC flex 10* flex 10* ext. right MP flex 20*. right IP flexion 50*. pt continues to slightly hyper ext MPJ at times- working on strengthening around thumb/pinch and laboratory technician/ pt to use comfort cool brace with grandchildren and hard or orthopolast with heavy work activities. pt demo understanding of her HEP- and agrees to D/C Goal:100% adherence to protocol: Yes Goal:Daily scar massage when approriate: Yes Goal:ROM equal to unaffected hand: Yes Goal:Podiatric Foot And Ankle Specialist/Pinch strength at least 75% of unaffected hand: Yes Goal:No pain with affected hand use: Yes Goal:Full use of affected hand in daily activities including: Yes Goal:Decrease scar hypersensitivity: Yes Plan: pt doing well- will continue with PRE for laboratory technician and pinch Discharge Comments: pt was seen for 7 OT visits following a right CMC arthroplasty- pt has met goals in OT and will continue with HEP to cont. strengthening. pt agrees to POC. If there are questions or concerns regarding this patient's occupational therapy, please fell free to call me at [phone]. Thank you for the referral of this patient. Sincerely, Isabella Viera, OTR/L, CHT
== END 2022-03-31 19:00 | disposition home or self-care (01) ==
LOC: OT 08:00
PROVIDERS: PCP Family Medicine; Referring Provider Physician Assistant Surgical; Visit Provider Physician Assistant Surgical
DX: M18.11 Unilateral primary osteoarthritis of first carpometacarpal joint, right hand (principal)
CPT/HCPCS: 97110; 97140; 97166; 97530; 97760

== ENCOUNTER → 2022-04-21 | Outpatient (CLI) | payer BC, SELFPAY ==
[2022-04-21 15:33] LABS: Absolute Lymphocyte Count 1.99 X10^3/uL (0.83-4.51); Absolute Neutrophil Count 3.3 X10^3/uL (2.0-7.7); Basophil# 0.02 X10^3/uL; Basophil% 0.3 % (0-1); Eosinophils% 1.7 % (0-5); Hemoglobin 13.9 g/dL (12.0-15.0); Lymphocyte # 1.99 X10^3/ul (0.83-4.51); Lymphocyte % 34.6 % (19-41); Mean Corp Hgb Conc 34.8 g/dL (32-36); Mean Corpuscular Hgb 31.8 pg (27.0-32.0); Mean Corpuscular Volume 91.5 fL (81-99); Mean Platelet Vol. 9.8 fl (6.2-12.0); Monocyte# 0.38 X10^3/uL; Monocyte% 6.6 % (0-10); NRBC Flagged by Analyzer 0 % (0-5); Neutrophil # 3.25 X10^3/uL (2.7-7.7); Neutrophil % 56.6 % (47-70); Platelet Count 235 K/mm3 (150-450); RBC Distribution Width CV 11.6 % (11.6-14.6); RBC Distribution Width SD 39.2 fl (35.1-43.9); Red Blood Count 4.37 M/mm3 (4.2-5.4); White Blood Count 5.8 K/mm3 (4.4-11.0)
[2022-04-21 16:13] LABS: Anion Gap 7 (5-15); BUN 17 mg/dL (7-18); BUN/Creat Ratio 19.6 RATIO (10-20); Calcium,Total 8.7 mg/dL (8.5-10.1); Chloride 108 mmol/L (98-107); Creatinine, Serum 0.87 mg/dL (0.55-1.02); EST Glomerular Filtration Rate 70 mL/min (>60); Est Glom Filt Rate - Afr Amer 85 mL/min (>60); Glucose 91 mg/dL (74-106); Potassium 4.1 mmol/L (3.5-5.1); Sodium Level 140 mmol/L (136-145)
== END | disposition home or self-care (01) ==
LOC: MTLAB 11:41
PROVIDERS: PCP Family Medicine; Referring Provider Physician Assistant Surgical; Visit Provider Physician Assistant Surgical
DX: Z01.818 Encounter for other preprocedural examination (principal)
CPT/HCPCS: 36415; 80048; 85025

== ENCOUNTER → 2022-10-04 | Outpatient (CLI) | payer BC, SELFPAY ==
[2022-10-04 12:07] LABS: Absolute Lymphocyte Count 1.63 X10^3/uL (0.83-4.51); Absolute Neutrophil Count 3.3 X10^3/uL (2.0-7.7); Basophil# 0.02 X10^3/uL; Basophil% 0.4 % (0-1); Eosinophil# 0.08 X10^3/uL; Eosinophils% 1.5 % (0-5); Hematocrit 42.8 % (37-47); Hemoglobin 14.3 g/dL (12.0-15.0); Lymphocyte # 1.63 X10^3/ul (0.83-4.51); Lymphocyte % 30.4 % (19-41); Mean Corp Hgb Conc 33.4 g/dL (32-36); Mean Corpuscular Hgb 30.4 pg (27.0-32.0); Mean Corpuscular Volume 91.1 fL (81-99); Mean Platelet Vol. 9.2 fl (6.2-12.0); Monocyte# 0.32 X10^3/uL; NRBC Flagged by Analyzer 0 % (0-5); Neutrophil # 3.31 X10^3/uL (2.7-7.7); Neutrophil % 61.5 % (47-70); Platelet Count 236 K/mm3 (150-450); RBC Distribution Width CV 11.5 % (11.6-14.6); RBC Distribution Width SD 38.5 fl (35.1-43.9); White Blood Count 5.4 K/mm3 (4.4-11.0)
[2022-10-04 12:25] LABS: ALB/GLOB Ratio 1.3 RATIO (0.9-2.4); AST(SGOT) 18 U/L (15-37); Alanine Aminotransfer ALT/SGPT 25 U/L (13-56); Albumin, Serum 3.9 g/dL (3.2-5.0); Alkaline Phosphatase 89 U/L (45-117); Anion Gap 3 (5-15); BUN 14 mg/dL (7-18); BUN/Creat Ratio 16.2 RATIO (10-20); Calcium,Total 9.2 mg/dL (8.5-10.1); Chloride 110 mmol/L (98-107); Cholesterol 189 mg/dL (200); Creatinine, Serum 0.86 mg/dL (0.55-1.02); EST Glomerular Filtration Rate 71 mL/min (>60); Est Glom Filt Rate - Afr Amer 86 mL/min (>60); Glucose 98 mg/dL (74-106); High Density Lipoprotein 41 mg/dL; Potassium 3.9 mmol/L (3.5-5.1); Protein, Total 6.9 g/dL (6.4-8.2); Sodium Level 141 mmol/L (136-145); Triglycerides 132 mg/dL; Very Low Density Lipoprotein 26 mg/dL (5-40)
== END | disposition home or self-care (01) ==
LOC: MFPLAB 10:29
PROVIDERS: PCP Family Medicine; Visit Provider Family Medicine
DX: Z00.00 Encounter for general adult medical examination without abnormal findings (principal); L40.50 Arthropathic psoriasis, unspecified; Z13.220 Encounter for screening for lipoid disorders
CPT/HCPCS: 36415; 80053; 80061; 85025

== ENCOUNTER 2022-10-06 10:00 | Outpatient (RCR) | payer BC, SELFPAY ==
--- NOTE | 2022-07-01 09:47 | HP.OTEVAL_ITS ---
Patient's Visit Information NAILA ZHANG is a 62 year old F, referred to Occupational Therapy by Fidel Ryan PA-C, with a diagnosis of left unilateral primary OA of 1st cmcJ. Date of Evaluation: 06/30/22 Occupational Therapist: Isabella Viera, OTR/Ray, CHT - Subjective This 62 year old female was seen for OT eval with left unilateral pirmary OA first CMCJ. pt has struggled with bilateral CMC OA for years and due to pain she was limited with ADLs and IADLs. Pt decided to have her left CMC arthroplasty so she could be pain free when performing her ADLS and IALDs. Pt arrives 4 weeks and 4 days s/p form left CMC arthroplasty. pt is in need of custom orthosis to provide protection and support while reconstruction is healing for best outcome. 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 - Pain left wrist 3 Pain Intensity Range: 2 - ROM Wrist: right 60/60 left 40/45 CMC: right 15 left 5 MP: right 30 left 10 IP: right 55 left 35* Opposition: Kapandji opposition scale right 10 left 4 ROM Comments: pt can form composite fist - Strength Whittling Room Operator: right 40# left NT Lateral Pinch: right 8# left NT Strength Comments: will test left at later date - Quick DASH-Disab of Arm,Shoulder& Hand Quick DASH Score: 81.6650 - Goals Goal:100% adherence to protocol: Yes Comment: cmc arthroplasty guidelines Goal:Daily scar massage when approriate: Yes Goal:ROM equal to unaffected hand: Yes Goal:Whittling Room Operator/Pinch strength at least 75% of unaffected hand: Yes Goal:No pain with affected hand use: Yes Goal:Full use of affected hand in daily activities including: Yes - Rehabilitation General Assessment: pt arrives 4 weeks and 4 days s/p from left CMC arthroplasty. Pt demo with newly healing reconstruction, limited ROM, weakness and decrease use of bilateral hands for ADLs and IADLs. pt would benefit from skilled OT services 1-2x week for 6 weeks to return pt to her [facility]. Today therapist fabricated custom orthosis to provide protection and support while reconstruction is healing. Pt was ed, on use and care and demo understanding. therapist ed. pt on initiation of short arch wrist ROM, IP ROM and supported CMC MP motion. pt demo understanding of ex. and agree to POC. Rehabilitation Potential: Good - Anticipated Interventions Strengthening, Scar Care, Triggerpoint Release, Desensitization, Modalities, Orthoses, Joint Protection/Energy Conservation, Ergonomic Education, Fine Motor Coord/Rodolfo, Education re Diagnosis, Home Program - Visit Plan Frequency: 1-2x /Week Duration: 4-6 Weeks General Plan: 4weeks s/p custom thumb spica IPJ free. scar care, full finger ROM, full wrist ROM , MP and IPJ motion of thumb, Opposition to small finger while supporting CMC to prevent rocking at base of thumb and hand flat. 6wks s/p PROM cmc motion. 5-6wks pre-erasmo thumb orthotic daytime use -custom orthosis use and night and with heavy activity until 12 weeks s/p. 6-7wks strengthening. at [address] tipton full finger & wrist motion- hand flat and opposition to small finger between DIPJ & PIPJ. Discontinue custom orthosis use at 12 weeks TEXT: Thank you for the opportunity to evaluate your patient. For Medicare and Medicare HMO plans, please review the plan of care and approve it. It will need to be FAXED BACK to us at [phone] for Medicare purposes. Please let me know if there are questions or concerns regarding this plan of care. Physician Signature: Date:
== END 2022-10-06 19:00 | disposition home or self-care (01) ==
LOC: OT 10:00
PROVIDERS: PCP Family Medicine; Referring Provider Physician Assistant Surgical; Visit Provider Physician Assistant Surgical
DX: M18.12 Unilateral primary osteoarthritis of first carpometacarpal joint, left hand (principal)
CPT/HCPCS: 97035; 97110; 97140; 97166; 97530; 97760

== ENCOUNTER → 2022-10-18 | Outpatient (CLI) | payer BC, SELFPAY ==
--- NOTE | 2022-10-18 08:15 | BI_ITS ---
MAMMOGRAPHY - BILATERAL SCREENING REASON FOR EXAM: Female, 62 years old. Routine annual screening examination. PERTINENT HISTORY: Grandmother with breast cancer. TECHNIQUE: Digital bilateral breast ashley (3D mammographic acquisition) in the CC and MLO projections. 2-D mediolateral oblique (MLO) and craniocaudad (CC) views of both breasts were obtained. CAD: Full Field Digital Mammography with Computer Added Detection was performed. COMPARISON: Comparison is made with prior study of September 24, 2021 and August 07, 2020. FINDINGS: Breast Composition: The breasts are heterogeneously dense, which may obscure small masses. There are no dominant masses or suspicious calcifications. No other significant abnormalities are identified. There has been no significant change since the prior study. BI/SCRN MAMM (CAD)W/ASHLEY BILAT IMPRESSION: Stable bilateral screening mammogram. Yearly follow-up mammogram recommended. (A) ASSESSMENT CATEGORY: BIRADS Category 1: Negative. A letter regarding these results will be sent to the patient by the facility within 30 days. Approximately 10% of breast cancers are not detected by mammography. A normal mammogram should not delay biopsy of a clinically suspicious abnormality. [id number] Electronically Signed: Zaire Martin MD at 9:07 EDT ,
== END | disposition home or self-care (01) ==
LOC: OPBI 08:13
PROVIDERS: PCP Family Medicine; Referring Provider Family Medicine; Visit Provider Family Medicine
DX: Z12.31 Encounter for screening mammogram for malignant neoplasm of breast (principal)
CPT/HCPCS: 77063; 77067

== ENCOUNTER → 2023-01-19 | Outpatient (CLI) | payer BC, SELFPAY ==
--- NOTE | 2023-01-19 08:37 | EKG12_ITS ---
Test Reason : PRE-OP Blood Pressure : / mmHG Vent. Rate : 067 BPM Atrial Rate : 067 BPM P-R Int : 126 ms QRS Dur : 078 ms QT Int : 394 ms P-R-T Axes : 061 059 055 degrees QTc Int : 416 ms Normal sinus rhythm with sinus arrhythmia Normal ECG Confirmed by JOSE CORONA, BRIAN ([id number]), manager editorial MONTSERRAT SHAIKH ([id number]) on 01/19/2023 11:36:09 AM Referred By: Darren Mcclain Confirmed By:LESLIE GARCIA MD
[2023-01-19 09:25] LABS: Absolute Lymphocyte Count 1.32 X10^3/uL (0.83-4.51); Basophil# 0.03 X10^3/uL; Basophil% 0.5 % (0-1); Eosinophil# 0.16 X10^3/uL; Eosinophils% 2.7 % (0-5); Hematocrit 41.1 % (37-47); Hemoglobin 13.7 g/dL (12.0-15.0); Lymphocyte # 1.32 X10^3/ul (0.83-4.51); Lymphocyte % 22.1 % (19-41); Mean Corp Hgb Conc 33.3 g/dL (32-36); Mean Corpuscular Hgb 30.9 pg (27.0-32.0); Mean Corpuscular Volume 92.6 fL (81-99); Monocyte# 0.45 X10^3/uL; Monocyte% 7.5 % (0-10); NRBC Flagged by Analyzer 0 % (0-5); Neutrophil # 3.99 X10^3/uL (2.7-7.7); Neutrophil % 66.9 % (47-70); Platelet Count 233 K/mm3 (150-450); RBC Distribution Width CV 11.9 % (11.6-14.6); RBC Distribution Width SD 40.2 fl (35.1-43.9); Red Blood Count 4.44 M/mm3 (4.2-5.4)
[2023-01-19 10:12] LABS: Anion Gap 5 (5-15); BUN 19 mg/dL (7-18); BUN/Creat Ratio 17.1 RATIO (10-20); Calcium,Total 8.9 mg/dL (8.5-10.1); Chloride 112 mmol/L (98-107); Creatinine, Serum 1.11 mg/dL (0.55-1.02); EST Glomerular Filtration Rate 53 mL/min (>60); Est Glom Filt Rate - Afr Amer 64 mL/min (>60); Glucose 75 mg/dL (74-106); Sodium Level 141 mmol/L (136-145)
== END | disposition home or self-care (01) ==
LOC: PSN 08:36
PROVIDERS: PCP Family Medicine; Referring Provider Student in an Organized Health Care Education/Training Program; Visit Provider Student in an Organized Health Care Education/Training Program
DX: Z01.818 Encounter for other preprocedural examination (principal); Z01.810 Encounter for preprocedural cardiovascular examination
CPT/HCPCS: 36415; 80048; 85025; 93005

== ENCOUNTER → 2023-04-01 | Outpatient (CLI) | payer BC, SELFPAY ==
[2023-04-01 12:07] LABS: Erythrocyte Sedimentation Rate < 1 mm/hr (0-30)
[2023-04-01 12:10] LABS: Absolute Lymphocyte Count 1.44 X10^3/uL (0.83-4.51); Basophil# 0.03 X10^3/uL; Basophil% 0.3 % (0-1); Eosinophil# 0.04 X10^3/uL; Eosinophils% 0.4 % (0-5); Hematocrit 47.2 % (37-47); Hemoglobin 15.5 g/dL (12.0-15.0); Lymphocyte # 1.44 X10^3/ul (0.83-4.51); Lymphocyte % 15.8 % (19-41); Mean Corp Hgb Conc 32.8 g/dL (32-36); Mean Corpuscular Hgb 30.8 pg (27.0-32.0); Mean Corpuscular Volume 93.8 fL (81-99); Mean Platelet Vol. 8.9 fl (6.2-12.0); Monocyte# 0.57 X10^3/uL; Monocyte% 6.3 % (0-10); NRBC Flagged by Analyzer 0 % (0-5); Neutrophil % 76.8 % (47-70); Platelet Count 279 K/mm3 (150-450); RBC Distribution Width CV 12.7 % (11.6-14.6); RBC Distribution Width SD 43.9 fl (35.1-43.9); Red Blood Count 5.03 M/mm3 (4.2-5.4); White Blood Count 9.1 K/mm3 (4.4-11.0)
[2023-04-01 12:50] LABS: ALB/GLOB Ratio 1.2 RATIO (0.9-2.4); AST(SGOT) 13 U/L (15-37); Alanine Aminotransfer ALT/SGPT 27 U/L (13-56); Albumin, Serum 3.8 g/dL (3.2-5.0); Alkaline Phosphatase 110 U/L (45-117); Anion Gap 5 (5-15); BUN 10 mg/dL (7-18); BUN/Creat Ratio 11.1 RATIO (10-20); CRP < 2.90 mg/L (0.0-3.0); Calcium,Total 9.5 mg/dL (8.5-10.1); Chloride 110 mmol/L (98-107); EST Glomerular Filtration Rate 67 mL/min (>60); Est Glom Filt Rate - Afr Amer 81 mL/min (>60); Ferritin 232 ng/mL (8-252); Globulin 3.3 g/dL (2.2-4.2); Glucose 96 mg/dL (74-106); Iron 114 ug/dL (50-170); Magnesium 2.4 mg/dL (1.6-2.6); Potassium 3.9 mmol/L (3.5-5.1); Protein, Total 7.1 g/dL (6.4-8.2); Sodium Level 141 mmol/L (136-145); Thyroid Stim Hormone (TSH) 0.74 uIU/mL (0.358-3.74)
== END | disposition home or self-care (01) ==
LOC: MTLAB 09:39
PROVIDERS: PCP Family Medicine; Referring Provider Family Medicine; Visit Provider Family Medicine
DX: G47.62 Sleep related leg cramps (principal); L40.50 Arthropathic psoriasis, unspecified; E61.1 Iron deficiency
CPT/HCPCS: 36415; 80053; 82728; 83540; 83735; 84443; 85025; 85652; 86140

== ENCOUNTER 2023-05-20 08:00 | Outpatient (RCR) | payer BC, SELFPAY ==
--- NOTE | 2023-03-08 13:25 | HP.OTEVAL_ITS ---
Patient's Visit Information Visit Information Visit Information: NAILA ZHANG is a 63 year old F, referred to Occupational Therapy by Dr. Darren Mcclain, , with a diagnosis of L revision CMC joint arthroplasty & metacarpophalangeal joint volar cap.. Date of Evaluation: 03/04/23 Occupational Therapist: Isabella Viera, ÁNGEL/Ray, CHT Subjective Subjective: Pt is a 63 year old female with a left thumb revision CMC joint arthroplasty with TightRope suture suspensionplasty and metacarpophalangeal joint volar capsulodesis surgery on February 01. Pt is 4 weeks and 3 days post surgery. Pt arrives with cast, had a pin removed this morning, and ready for custom orthosis to follow Dr. mo. Pt had been in a soft sx splint for 2 weeks and cast for 2 weeks. Pt arrives for custom orthosis to continue to provide support and protection on newly healing structures. 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 ROM Wrist: R 40/80 L 36/17 MP: R +6/39 L +6/2 IP: R +11/75 L -12/17 Radial Abduction: R 15/30 L 15/20 Palmar Abduction: R 20/35 L 17/29 Opposition: Kapandji opposition Scale R 10 L 3 Strength Strength Comments: strength will be tested at later date Sensation Sensation Comments: denies Quick DASH-Disab of Arm,Shoulder& Hand Quick DASH Score: 60.0000 Goals Goal:: Pt to demo overall increased indep in ADL/IADL tasks by decreased total DASH score by 30 points by discharge. Goal:100% adherence to protocol: Yes Comment: Dr. Mcclain's Protocol Volar capsulodises and use of tight rope guidelines Goal:Daily scar massage when approriate: Yes Goal:ROM equal to unaffected hand: Yes Goal:Store Hand/Pinch strength at least 75% of unaffected hand: Yes Comment: will wait until cleared by sx to initiate strengthening Goal:No pain with affected hand use: Yes Goal:Full use of affected hand in daily activities including work: Yes Goal:Decrease scar hypersensitivity: Yes Other Goal: orthosis use: pt will demo understanding to utilize orthosis at all times and will verbalize care/precautions by end of 1xst session. Rehabilitation General Assessment: Pt seen for OT alaina s/p 4 weeks and 3 days post left thumb revision CMC joint arthroplasty and metacarpophalangeal joint volar capsulodesis. Pt is limited in ability to perform ADL/IADL tasks and requires a custom orthosis to promote proper healing. Pt will benefit from skilled OT x1- 2x a week for 12 weeks. Therapist erasmo custom orthosis to provide protection and support while structures continue to heal. Therapist ed. pt on proper use and precautions of orthosis- pt demo understanding and demo IND with Donning/doffing orthosis. Therapist ed in care of orthosis and OT POC. Pt verbalizes understanding and agreeable to OT POC. Therapy session was directly supervised and doc. approved by Isabella NEAL/Ray,MARUT. Rehabilitation Potential: Good Anticipated Interventions Anticipated Interventions: A/AAROM/PROM, Strengthening, Scar Care, Triggerpoint Release, Modalities, Orthoses, Joint Protection/Energy Conservation, Ergonomic Education, Fine Motor Coord/Rodolfo, Education re assistive Equipment, Education re Diagnosis and Home Program Visit Plan Frequency: 1-2x /Week Duration: 4-6 Weeks General Plan: Follow post surgical protocol Week 4 - Begin wrist ROM exercises, edema management, digits ROM Week 6 - initiate MCP motion avoid any MPJ ext may use oval 8 orthosis re-form splint MP in 20-30* flexion, avoid stretching volar plate or thumb into abduction ( will check and see if Dr. Mcclain will allow comfort cool thumb brace for light daily tasks) Week 10 light isometrics, can start pinching TEXT: Thank you for the opportunity to evaluate your patient. For Medicare and Medicare HMO plans, please review the plan of care and approve it. It will need to be FAXED BACK to us at [phone] for Medicare purposes. Please let me know if there are questions or concerns regarding this plan of care. Physician Signature: Date:
== END 2023-05-20 19:00 | disposition home or self-care (01) ==
LOC: OT 08:00
PROVIDERS: PCP Family Medicine; Referring Provider Student in an Organized Health Care Education/Training Program; Visit Provider Student in an Organized Health Care Education/Training Program
DX: M18.12 Unilateral primary osteoarthritis of first carpometacarpal joint, left hand (principal)
CPT/HCPCS: 97110; 97140; 97166; 97530; 97760

== ENCOUNTER → 2023-08-04 | Outpatient (CLI) | payer BC, SELFPAY ==
[2023-08-04 15:46] LABS: Absolute Lymphocyte Count 1.53 X10^3/uL (0.83-4.51); Absolute Neutrophil Count 4.2 X10^3/uL (2.0-7.7); Basophil# 0.02 X10^3/uL; Basophil% 0.3 % (0-1); Eosinophil# 0.04 X10^3/uL; Eosinophils% 0.6 % (0-5); Hematocrit 43.7 % (37-47); Hemoglobin 14.5 g/dL (12.0-15.0); Lymphocyte # 1.53 X10^3/ul (0.83-4.51); Lymphocyte % 24.3 % (19-41); Mean Corp Hgb Conc 33.2 g/dL (32-36); Mean Corpuscular Hgb 30.1 pg (27.0-32.0); Mean Corpuscular Volume 90.9 fL (81-99); Mean Platelet Vol. 9.4 fl (6.2-12.0); Monocyte% 7.9 % (0-10); NRBC Flagged by Analyzer 0 % (0-5); Neutrophil # 4.19 X10^3/uL (2.7-7.7); Neutrophil % 66.7 % (47-70); Platelet Count 241 K/mm3 (150-450); RBC Distribution Width CV 11.7 % (11.6-14.6); RBC Distribution Width SD 39.1 fl (35.1-43.9); Red Blood Count 4.81 M/mm3 (4.2-5.4); White Blood Count 6.3 K/mm3 (4.4-11.0)
[2023-08-04 16:35] LABS: BNP,B-Type NATRIURETIC PEPTIDE 14.8 pg/mL (0-100)
[2023-08-04 16:55] LABS: ALB/GLOB Ratio 1.3 RATIO (0.9-2.4); AST(SGOT) 37 U/L (15-37); Alanine Aminotransfer ALT/SGPT 54 U/L (13-56); Albumin, Serum 3.9 g/dL (3.2-5.0); Alkaline Phosphatase 121 U/L (45-117); Anion Gap 7 (5-15); BUN 15 mg/dL (7-18); BUN/Creat Ratio 17.7 RATIO (10-20); Calcium,Total 9.5 mg/dL (8.5-10.1); Chloride 110 mmol/L (98-107); Creatinine, Serum 0.85 mg/dL (0.55-1.02); EST Glomerular Filtration Rate 72 mL/min (>60); Est Glom Filt Rate - Afr Amer 87 mL/min (>60); Globulin 3.1 g/dL (2.2-4.2); Glucose 96 mg/dL (74-106); Potassium 3.9 mmol/L (3.5-5.1); Sodium Level 140 mmol/L (136-145); Thyroid Stim Hormone (TSH) 0.53 uIU/mL (0.358-3.74)
== END | disposition home or self-care (01) ==
LOC: MFPLAB 11:38
PROVIDERS: PCP Family Medicine; Visit Provider Family Medicine
DX: I10 Essential (primary) hypertension (principal); M79.89 Other specified soft tissue disorders; R68.89 Other general symptoms and signs
CPT/HCPCS: 36415; 80053; 83880; 84443; 85025

== ENCOUNTER 2023-08-09 08:40 | Emergency (ER) | payer BC, SELFPAY ==
[2023-08-09 08:43] VITALS: BP 141/99; PULSE 121; RESP 20; TEMP 37.1; O2SAT 98; BMI 23.7
--- NOTE | 2023-08-09 09:07 | EX.ED.DYSGE1 ---
HPI History of Present Illness Chief Complaint: Weakness Informant: patient and family Narrative Narrative: 63-year-old female presenting to the emergency room chief complaint of weakness/dehydration. Patient states that last she saw her doctor for lower extremity swelling and was placed on diuretic. She states that over the weekend she has had progressive weakness. She notes a charley horse that occurred in her left calf. She is nauseated and has had some vomiting. She notes dry mouth. She states that she feels dehydrated like she did 2 years ago when she was in the emergency department. She has not had a bowel movement for couple days. She notes the lower extremity is better. She tried the same diuretic in the past and had nausea and poor tolerance of the medication. [facility] Medical History HTN (hypertension) Psoriatic arthritis Home Medications bupropion HCl 300 mg 24 hr tablet, extended release (Wellbutrin XL) 300 mg PO QAM 10/06/17 [History Last Taken Unknown] meloxicam 15 mg tablet 15 mg PO QDAY 10/06/17 [History Last Taken Unknown] amlodipine 5 mg tablet 10/26/21 [History Last Taken Unknown] bupropion HCl 150 mg 24 hr tablet, extended release mg PO 10/26/21 [History Last Taken Unknown] losartan 50 mg tablet 10/26/21 [History Last Taken Unknown] nitrofurantoin monohydrate/macrocrystals 100 mg capsule 100 mg PO Q12 #10 CAPSULES 08/09/23 [Rx Last Taken Unknown] potassium chloride 20 mEq tablet,extended release 40 meq (2 x 20 mEq) PO DAILY 5 days #10 tabs 08/09/23 [Rx Last Taken Unknown] Allergy/AdvReac Type Severity Reaction Status Date / Time indapamide AdvReac WEAKNESS Verified 08/09/23 08:43 nebivolol [From Bystolic] AdvReac Nausea Verified 08/09/23 08:43 Surgical History ectopic surgery Social History household members: none Smoking Status: Former smoker alcohol intake: current alcohol intake frequency: holidays/special occasions only ROS ROS ED ROS Narrative Patient reports generally feeling weak especially with exertion Constitutional Constitutional ED: Denies chills, fever(s) or weight loss Eyes Eyes: Reports other Details: Dry mouth ; Denies change in vision or diplopia ENT ENT ED: Denies ear pain, rhinorrhea or sore throat Cardiovascular Cardiovascular: Denies chest pain, orthopnea, palpitations or racing heartbeat Respiratory/Chest Respiratory/Chest: Denies cough, dyspnea or orthopnea Gastrointestinal Gastrointestinal: Reports abdominal pain, constipation, nausea and vomiting; Denies diarrhea Genitourinary Genitourinary ED: Denies dysuria, hematuria or urinary frequency Musculoskeletal Musculoskeletal: Reports other Details: Left calf muscle spasm (on Tuesday) ; Denies arthralgias or myalgias Integumentary Denies abscess or rash Neurologic Neurologic: Denies headache(s) or weakness Psychiatric Psychiatric: Denies anxiety, depression, suicidal ideation or suicidal thoughts Endocrine Endocrinology: Denies polydipsia, polyphagia or polyuria Allergic/Immunologic Allergic/Immunologic ED: Denies mouth swelling, tongue swelling or urticaria EXAM Physical Exam Const Vital Signs: 08/09/23 08:43 08/09/23 08:40 08/09/23 09:25 Temperature 98.7 F Temperature Source Temporal Pulse Rate 121 H Pulse Rate [Lying] 101 H Pulse Rate [Sitting (for 1 minute prior to obtaining)] 114 H Pulse Rate [Standing (for 1 minute prior to obtaining)] 137 H Respiratory Rate 20 H Respiratory Effort Normal Blood Pressure 141/99 H Blood Pressure [Lying] 132/91 H Blood Pressure [Sitting (for 1 minute prior to obtaining)] 138/95 H Blood Pressure [Standing (for 1 minute prior to obtaining)] 133/92 H Blood Pressure Mean 113 Blood Pressure Mean [Lying] 104 Blood Pressure Mean [Sitting (for 1 minute prior to obtaining)] 109 Blood Pressure Mean [Standing (for 1 minute prior to obtaining)] 105 Pulse Ox 98 Positive well nourished and well developed General Appearance ED: well developed HEENT Reports normocephalic, head/scalp atraumatic and dry mucous membranes Mouth ED: Yes dry mucous membranes Mouth: dry mucous membranes Eyes PERRL and EOMs intact bilaterally Neck no lymphadenopathy, supple and no JVD Resp normal respiratory effort and clear to auscultation bilaterally Cardio regular rate, regular rhythm and no murmurs Rate: tachycardic GI normal to inspection, nondistended, normoactive bowel sounds and non-tender Palpation: soft Back/Spine no CVA tenderness and normal ROM Extremity normal to inspection General Extremety ED: Negative for edema General Extremity: Negative for edema Neuro oriented x3 and CN's II-XII intact bilaterally Sensorium / Orientation: alert Motor Exam: strength 5/5 throughout Psych mental status grossly normal Mood & Affect: Negative for depressed or tearful Skin no rashes or lesions noted and no wounds MDM MDM MDM Narrative Medical decision making narrative: Hemoglobin at 17 which I suspect is due to hemoconcentration. Creatinine elevated off baseline at 1.07 with a BUN of 26. Potassium at 3. Magnesium 2.2. Urinalysis 10-25 white cells 1+ bacteria 500 leukocyte esterase negative nitrates. This was sent for culture. Patient received 2 L of IV fluids. Prior to fluids she did not have a drop in blood pressure but a rise in her heart rate further suggestive of dehydration. Due to the hypokalemia which I suspect is contributing to the patient not feeling well she was given IV potassium and oral potassium. Will replace this as well over the next couple days. We will write her Macrobid for the urine infection. Would recommend follow-up with primary care later this week. History & Record Review Discussion w/independent historian: Patient Additional record(s) reviewed:: Prior ED visit and Prior labs Lab Data Attestation: I reviewed the patient's lab results. Labs: Laboratory Results - last 24 hr 08/09/23 08/09/23 09:13 10:05 WBC 10.6 RBC 5.63 H Hgb 17.0 H Hct 47.8 H MCV 84.9 D MCH 30.2 MCHC 35.6 D RDW Std Deviation 34.3 L RDW Coeff of Margot 11.2 L Plt Count 312 MPV 9.0 Immature Gran % (Auto) 0.300 Neut % (Auto) 70.7 H Lymph % (Auto) 20.4 Gaines % (Auto) 7.9 Eos % (Auto) 0.3 Baso % (Auto) 0.4 Absolute Neuts (auto) 7.5 Absolute Lymphs (auto) 2.17 Nucleated RBC % 0 Sodium 132 L Potassium 3.0 L Chloride 100 Carbon Dioxide 23.0 Anion Gap 9 BUN 26 H Creatinine 1.07 H Estim Creat Clear Calc 50.38 Est GFR (MDRD) Af Amer 67 Est GFR (MDRD) Non-Af 55 L BUN/Creatinine Ratio 24.3 H Glucose 129 H Calcium 10.0 Magnesium 2.2 Total Bilirubin 1.30 H AST 18 ALT 35 Alkaline Phosphatase 130 H Total Protein 7.5 Albumin 4.0 Globulin 3.5 Albumin/Globulin Ratio 1.1 Urine Color Yellow Urine Clarity Cloudy Urine pH 5.0 Ur Specific [place] 1.015 Urine Protein 30 H Urine Glucose (UA) Normal Urine Ketones Negative Urine Occult Blood 25 H Urine Nitrite Negative Urine Bilirubin Negative Urine Urobilinogen Normal Ur Leukocyte Esterase 500 H Urine RBC 0-5 SEEN Urine WBC 10-25 SEEN Ur Squamous Epith Cells 0-5 SEEN Urine Bacteria 1+ Urine Mucus 1+ EKG Initial EKG: Attestation: I personally reviewed and interpreted this EKG as follows: Interpretation: Sinus Rhythm Comments: Sinus rhythm with a ventricular rate of 100 bpm. Discharge Plan Triage Chief Complaint: Weakness ED Provider: Michael Orellana Dx/Rx/DC Orders Clinical Impression: Acute dehydration, Acute hypokalemia, UTI (urinary tract infection) Instructions: UTIs Understanding, Dehydration, ED Hypokalemia Prescriptions: New nitrofurantoin monohyd/m-cryst [nitrofurantoin monohyd/m-cryst] 100 mg capsule 100 mg PO Q12 Qty: 10 0RF potassium chloride 20 mEq tablet extended release 40 meq PO DAILY 5 Days Qty: 10 0RF No Action bupropion HCl [Wellbutrin XL] 300 mg tablet extended release 24 hr 300 mg PO QAM meloxicam 15 mg tablet 15 mg PO QDAY losartan 50 mg tablet amlodipine 5 mg tablet bupropion HCl 150 mg tablet extended release 24 hr PO Primary Care Provider: You Peraza Referrals: You Peraza MD [Primary Care Provider] - 1 Week Disposition Disposition: Home, Self Care
[2023-08-09] MEDS: 0.9% Normal Saline (1000mL) 1,000 ML 1000 ML IV (09:17)
[2023-08-09 09:24] LABS: Absolute Lymphocyte Count 2.17 X10^3/uL (0.83-4.51); Absolute Neutrophil Count 7.5 X10^3/uL (2.0-7.7); Basophil# 0.04 X10^3/uL; Basophil% 0.4 % (0-1); Eosinophil# 0.03 X10^3/uL; Eosinophils% 0.3 % (0-5); Hematocrit 47.8 % (37-47); Lymphocyte # 2.17 X10^3/ul (0.83-4.51); Lymphocyte % 20.4 % (19-41); Mean Corp Hgb Conc 35.6 g/dL (32-36); Mean Corpuscular Hgb 30.2 pg (27.0-32.0); Mean Corpuscular Volume 84.9 fL (81-99); Monocyte# 0.84 X10^3/uL; Monocyte% 7.9 % (0-10); NRBC Flagged by Analyzer 0 % (0-5); Neutrophil # 7.53 X10^3/uL (2.7-7.7); Neutrophil % 70.7 % (47-70); Platelet Count 312 K/mm3 (150-450); RBC Distribution Width CV 11.2 % (11.6-14.6); RBC Distribution Width SD 34.3 fl (35.1-43.9); Red Blood Count 5.63 M/mm3 (4.2-5.4); White Blood Count 10.6 K/mm3 (4.4-11.0)
[2023-08-09 09:25] VITALS: BP 132/91; BP 133/92; BP 138/95; PULSE 101; PULSE 114; PULSE 137
[2023-08-09 10:14] LABS: Color, Urine Yellow (Yellow); Glucose, Dipstick Normal (Normal); Ketone-Dipstick Negative (Negative); Leukocyte Esterase-Dipstick 500 /ul (Negative); Nitrite-Dipstick Negative (Negative); Occult Blood-Urine 25 /ul (Negative); Protein-Dipstick 30 mg/dl (Negative); Specific Gravity, Urine 1.015 (1.002-1.030); Urine Bilirubin Dipstick Negative (Negative); Urine Clarity Cloudy (Clear); Urine Urobilinogen Normal (Normal)
[2023-08-09 10:15] LABS: ALB/GLOB Ratio 1.1 RATIO (0.9-2.4); AST(SGOT) 18 U/L (15-37); Alanine Aminotransfer ALT/SGPT 35 U/L (13-56); Alkaline Phosphatase 130 U/L (45-117); Anion Gap 9 (5-15); BUN 26 mg/dL (7-18); BUN/Creat Ratio 24.3 RATIO (10-20); Chloride 100 mmol/L (98-107); Creatinine, Serum 1.07 mg/dL (0.55-1.02); EST Glomerular Filtration Rate 55 mL/min (>60); Est Glom Filt Rate - Afr Amer 67 mL/min (>60); Estimated Creatinine Clearance 50.38 ml/min; Globulin 3.5 g/dL (2.2-4.2); Glucose 129 mg/dL (74-106); Magnesium 2.2 mg/dL (1.6-2.6); Protein, Total 7.5 g/dL (6.4-8.2); Sodium Level 132 mmol/L (136-145)
[2023-08-09 10:24] LABS: Bacteria 1+ /hpf (None Seen); Mucous, Urine 1+ /hpf (<or=2+); Red Blood Cells-Urine 0-5 SEEN /hpf (0-5); Squamous Epithelial Cells - UA 0-5 SEEN /hpf (5-10); White Blood Cells 10-25 SEEN /hpf (0-5)
[2023-08-09 10:40] VITALS: BP 134/76; PULSE 64; RESP 16; O2SAT 97
[2023-08-09] MEDS: Potassium Chloride Oral Tablet 20 MEQ 40 MEQ PO (10:40)
[2023-08-09] MEDS: 0.9% Normal Saline (1000mL) 1,000 ML 999 ML IV (10:40)
[2023-08-09] MEDS: Potassium Chloride 10mEq/100mL 10 MEQ/100 ML IV.SOLN. 100 MEQ IV BOLUS (11:10)
[2023-08-09 12:00] VITALS: BP 132/86; PULSE 64; RESP 16; TEMP 36.4; O2SAT 99
== END 2023-08-09 12:39 | disposition home or self-care (01) ==
PROVIDERS: Emergency Provider Emergency Medicine; PCP Family Medicine; Visit Provider Emergency Medicine
DX: E86.0 Dehydration (principal); N39.0 Urinary tract infection, site not specified; Z87.891 Personal history of nicotine dependence; R11.2 Nausea with vomiting, unspecified; E87.6 Hypokalemia; Z79.899 Other long term (current) drug therapy; I10 Essential (primary) hypertension
CPT/HCPCS: 80053; 81001; 83735; 85025; 87086; 87088; 93005; 96361; 96365; 99285; J7030; A4216

== ENCOUNTER → 2023-08-13 | Outpatient (CLI) | payer BC, SELFPAY ==
[2023-08-13 11:04] LABS: Anion Gap 1 (5-15); BUN 16 mg/dL (7-18); Calcium,Total 8.9 mg/dL (8.5-10.1); Chloride 109 mmol/L (98-107); Creatinine, Serum 0.84 mg/dL (0.55-1.02); EST Glomerular Filtration Rate 73 mL/min (>60); Est Glom Filt Rate - Afr Amer 88 mL/min (>60); Glucose 98 mg/dL (74-106); Magnesium 2.2 mg/dL (1.6-2.6); Potassium 4.3 mmol/L (3.5-5.1); Sodium Level 137 mmol/L (136-145)
== END | disposition home or self-care (01) ==
LOC: LAB 10:07
PROVIDERS: PCP Family Medicine; Referring Provider Family Medicine; Visit Provider Family Medicine
DX: I10 Essential (primary) hypertension (principal)
CPT/HCPCS: 36415; 80048; 83735

== ENCOUNTER → 2023-11-14 | Outpatient (CLI) | payer BC, SELFPAY ==
[2023-11-18 21:07] LABS: HPV APTIMA, High Risk Negative (Negative)
[2023-11-18 21:26] LABS: HPV Reflexed? YES, CHARGE PATIENT
== END | disposition home or self-care (01) ==
LOC: LABSPEC 12:18
PROVIDERS: PCP Family Medicine; Referring Provider Nurse Practitioner Family; Visit Provider Nurse Practitioner Family
DX: Z12.4 Encounter for screening for malignant neoplasm of cervix (principal)
CPT/HCPCS: 87624; 88175; G0145

== ENCOUNTER → 2023-11-29 | Outpatient (CLI) | payer BC, SELFPAY ==
--- NOTE | 2023-11-29 15:23 | BI_ITS ---
MAMMOGRAPHY - BILATERAL SCREENING REASON FOR EXAM: Female, 63 years old. Routine annual screening examination. PERTINENT HISTORY: Grandmother with breast cancer. TECHNIQUE: Digital bilateral breast ashley (3D mammographic acquisition) in the CC and MLO projections. 2-D mediolateral oblique (MLO) and craniocaudad (CC) views of both breasts were obtained. CAD: Full Field Digital Mammography with Computer Added Detection was performed. COMPARISON: Comparison is made with prior study October 18, 2022 and September 24, 2021. FINDINGS: Breast Composition: The breasts are heterogeneously dense, which may obscure small masses. There are no dominant masses or suspicious calcifications. No other significant abnormalities are identified. There has been no significant change since the prior study. BI/SCRN MAMM (CAD)W/ASHLEY BILAT IMPRESSION: Stable bilateral screening mammogram. Yearly follow-up mammogram recommended. (A) ASSESSMENT CATEGORY: BIRADS Category 1: Negative. A letter regarding these results will be sent to the patient by the facility within 30 days. Approximately 10% of breast cancers are not detected by mammography. A normal mammogram should not delay biopsy of a clinically suspicious abnormality. [id number] Electronically Signed: Zaire Martin MD at 8:24 EDT ,
--- NOTE | 2023-11-29 15:25 | BD_ITS ---
STUDY: DUAL ENERGY X-RAY ABSORPTIOMETRY / DXA REASON FOR EXAM: Female, 63 years old. V76.12ScreeningBONE DENSITY REASON FOR EXAM TECHNIQUE: Bone Mineral Density (BMD) measurements of lumbar spine and bilateral hips were obtained. COMPARISON: None. FINDINGS: Lumbar Spine (L1-L4): g/cm2 (0.759) / T-score (-2.6) / Z-score (-0.9) Findings are suggestive of osteoporosis with a high fracture risk. Left Femur Total: g/cm2 (0.677) / T-score (-2.2) / Z-score (-1.0) Left Femoral Neck: g/cm2 (0.517) / T-score (-3.0) / Z-score (-1.5) Right Femur Total: g/cm2 (0.699) / T-score (-2.0) / Z-score (-0.8) Right Femoral Neck: g/cm2 (0.596) / T-score (-2.3) / Z-score (-0.8) BD/Dexa Bone Density Study IMPRESSION: The patient is considered osteoporotic as outlined below according to World Heri Organization (WHO) criteria with a high fracture risk. Reference Information: The T-score is the number of standard deviations above or below the standard which is normal for young adults at their peak bone mineral density. The World Health Organization (WHO) interprets the T-scores as follows: Above -1 Normal bone density Between -1 and -2.5 Osteopenia Equal to / or below -2.5 Osteoporosis As a practical clinical guideline, osteopenia may be graded as follows: Mild -1 through -1.5 Moderate -1.6 through -2.0 Severe -2.1 through -2.4 The Z-score is the number of standard deviations above or below age-matched controls. A Z-score of less than -1.5 would be considered abnormal. References: 1. NIH Osteoporosis and Related Bone Diseases www osteo.org 2. International Society for Clinical Densitometry www iscd.org 3. National Osteoporosis Foundation www nof.org Electronically Signed: Zaire Martin MD at 9:40 EDT ,
== END | disposition home or self-care (01) ==
LOC: OPBD 15:21
PROVIDERS: PCP Family Medicine; Referring Provider Nurse Practitioner Family; Visit Provider Nurse Practitioner Family
DX: Z12.31 Encounter for screening mammogram for malignant neoplasm of breast (principal); Z13.820 Encounter for screening for osteoporosis
CPT/HCPCS: 77063; 77067; 77080

== ENCOUNTER 2024-02-01 07:55 | Outpatient (RCR) | payer BC, SELFPAY ==
--- NOTE | 2024-02-01 08:44 | HP.PTEVAL ---
Patient's Visit Information Visit Information Visit Information: NAILA ZHANG is a 63 year old F referred to Physical Therapy by Dr. You Peraza MD with a diagnosis of Osteoporosis. Date of Evaluation: 02/01/24 Physical Therapist: Alana Whipple DPT Visit Plan Frequency: 1x/Week Duration: 1 Week Plan: Will perform HEP and call if questions or concerns HEP given IE: SLS, Tandem Stance, Sit to Stand, HR/TR, Step Up, Hip Abd Walk, Lateral Plank, Plank, Bicep Curl while marching Subjective Subjective: Patient reports that she was told she has osteoporosis but feels that she was tested incorrectly- so she is unsure if she has it or not. She has aches and pains- she had cervical pain and lumbar pain that comes and goes for years. The low back has been there for years- the right hip is more new. They sent her for exercises for osteoporosis Objective Objective: Posture: good throughout Gait: no deviation noted Stairs: asc/desc recip no HR SLS: 30 sec with mild increase in sway Tandem stance: able bilateral for 10 sec mild sway Eyes Closed: NBOS: no loss of balance ROM: WNL In all planes of the UE/LE and Lumbar/Cervical Spines Strength: Scap: fair plus, Core: fair UE: 4+/5 throughout Hip: 4+/5 Knee: 5/5 Ankle: 5/5 Flex: HS: mild Gastroc: mild Goals Goal 1:: Patient will be I with HEP and progression Goal Time Frame: 4-6 Weeks Rehabilitation Potential Physical Therapy Diagnosis: Patient has good strength and balance and does not require physical therapy at this time Rehabilitation Potential: Good Anticipated Interventions Patient/Client Instruction: Educate patient on: Benefits of Fitness Program Therapeutic Exercise to Include: Strength training, Endurance training, Balance training, Agility training, Body mechanics, Postural training, Flexibilty training, Neuromotor development and Dynamic Lumbar Stabilization Text: Thank you for the opportunity to evaluate your patient. For Medicare and Medicare HMO plans, please review the plan of care and approve it. It will need to be FAXED BACK to us at [phone] for Medicare purposes. For Medicare only, by signing this I certify the plan of care. Please let me know if there are questions or concerns regarding this plan of care. Physician Signature: Date:
--- NOTE | 2024-02-01 08:44 | HP.PTDCSUM ---
Discharge Summary D/C summary: It has been my pleasure to treat NAILA ZHANG referred by Dr. You Peraza MD, with the diagnosis of Osteoporosis for a total of 1 visit(s). Discharge Date: 02/01/24 Please see the following information for a summary of their discharge status. Goals Goal 1:: Patient will be I with HEP and progression Plan Plan: Will perform HEP and call if questions or concerns HEP given IE: SLS, Tandem Stance, Sit to Stand, HR/TR, Step Up, Hip Abd Walk, Lateral Plank, Plank, Bicep Curl while marching D/C Information Discharge Comments: Will continue HEP indep and call if questions d/c sentence: If there are questions or concerns regarding this patient's physical therapy, please feel free to call me at [phone]. Thank you for the referral of this patient. Sincerely, JULIANA GarzaT
== END 2024-02-01 19:00 | disposition home or self-care (01) ==
LOC: PT 07:55
PROVIDERS: PCP Family Medicine; Referring Provider Family Medicine; Visit Provider Family Medicine
DX: M81.0 Age-related osteoporosis without current pathological fracture (principal)
CPT/HCPCS: 97110; 97161

== ENCOUNTER → 2024-02-18 | Outpatient (CLI) | payer BC, SELFPAY ==
[2024-02-18 12:37] LABS: Anion Gap 1 (5-15); BUN 15 mg/dL (7-18); BUN/Creat Ratio 14.7 RATIO (10-20); Calcium,Total 8.9 mg/dL (8.5-10.1); Chloride 114 mmol/L (98-107); Creatinine, Serum 1.02 mg/dL (0.55-1.02); EST Glomerular Filtration Rate 58 mL/min (>60); Est Glom Filt Rate - Afr Amer 70 mL/min (>60); Glucose 97 mg/dL (74-106); Potassium 3.9 mmol/L (3.5-5.1); Sodium Level 142 mmol/L (136-145)
== END | disposition home or self-care (01) ==
LOC: LAB 11:57
PROVIDERS: PCP Family Medicine; Referring Provider Family Medicine; Visit Provider Family Medicine
DX: M81.0 Age-related osteoporosis without current pathological fracture (principal)
CPT/HCPCS: 36415; 80048

== ENCOUNTER → 2024-09-04 | Outpatient (CLI) | payer BC, SELFPAY ==
--- NOTE | 2024-09-04 15:09 | RAD_ITS ---
PROCEDURE: CERV SPINE 4 OR 5 VIEWS REASON FOR EXAM: Neck pain. TECHNIQUE: 5 views of the cervical spine. COMPARISON: None FINDINGS: Cervical vertebral bodies are seen to the upper thoracic level on the sagittal view. Cervical vertebral bodies maintain a normal height. There is straightening of the cervical lordosis with mild reversal. There is mild levocurvature of the cervical spine. Multilevel disc space narrowing with endplate spurring is present which is on a severe basis from C5-C7. There is mild anterolisthesis of C3-C4 and C4-C5 as well as mild retrolisthesis of C5-C6. No acute fracture or subluxation is identified. Multilevel facet/uncovertebral changes are identified with right-sided neural foraminal narrowing from C3-C6 as well as left-sided neural foraminal narrowing at C3-C4 and C5-C6. Odontoid process is intact. Lateral masses are aligned. Atlantodental interval is intact. Prevertebral soft tissues are unremarkable. RAD/Cerv Spine 4 or 5 Views IMPRESSION: 1. No acute cervical spine fracture. 2. Multilevel degenerative changes greatest from C5-C7. If clinical concern fo r radiculopathy, MRI is a more sensitive exam. Reading Location: [facility]
== END | disposition home or self-care (01) ==
LOC: MTRAD 15:09
PROVIDERS: PCP Family Medicine; Referring Provider Family Medicine; Visit Provider Family Medicine
DX: M54.2 Cervicalgia (principal)
CPT/HCPCS: 72050

== ENCOUNTER → 2024-12-19 | Outpatient (CLI) | payer BC, SELFPAY ==
[2024-12-19 10:37] LABS: Anion Gap 10 (5-15); BUN 13 mg/dL (4-19); BUN/Creat Ratio 13.2 RATIO (10-20); Calcium,Total 8.9 mg/dL (7.6-11.0); Carbon Dioxide 20.9 mmol/L (21.0-32.0); Chloride 108 mmol/L (98-108); Cholesterol 178 mg/dL (<=200); Creatinine, Serum 0.98 mg/dL (0.70-1.20); EST Glomerular Filtration Rate 64 (>60); Glucose 88 mg/dL (70-99); High Density Lipoprotein 45 mg/dL; Low Density Lipoprotein Calc. 115 mg/dL; Potassium 3.9 mmol/L (3.3-5.1); Sodium Level 138 mmol/L (133-145); Triglycerides 91 mg/dL; Very Low Density Lipoprotein 18 mg/dL (5-40); cholesterol:hdl ratio screen 3.96
== END | disposition home or self-care (01) ==
LOC: MTLAB 07:59
PROVIDERS: PCP Family Medicine; Referring Provider Nurse Practitioner Family; Visit Provider Nurse Practitioner Family
DX: Z13.1 Encounter for screening for diabetes mellitus (principal); Z13.220 Encounter for screening for lipoid disorders
CPT/HCPCS: 36415; 80048; 80061

== ENCOUNTER → 2025-01-24 | Outpatient (CLI) | payer MEDICARE, SELFPAY ==
--- NOTE | 2025-01-24 17:36 | CT_ITS ---
PROCEDURE: LOW DOSE CT LUNG SCREENING 01/24/2025 REASON FOR EXAM: SCREEN TECHNIQUE: LOW DOSE CT LUNG SCREENING Coronal and Sagittal reconstruction series were provided. One or more dose reduction techniques were used (e.g., Automated exposure control, adjustment of the mA and/or kV according to patient size, use of iterative reconstruction technique). REFERENCE LINK: [facility] Lung-RADS RADIATION DOSE SUMMARY: CTDlvol: 2.01 mGy DLP: 66.20 mGycm FINDINGS: PULMONARY NODULES: (Only nodules >3mm are reported) Normal unenhanced main pulmonary artery and right and left pulmonary arteries. Normal bilateral peripheral pulmonary arteries. Normal thoracic aorta and visualized great vessels. There is no demonstrated aortic aneurysm. Normal heart and pericardium. The coronary arteries are calcified. Normal mediastinum. Normal hilar regions. Normal visualized trachea and bronchi. The lungs are emphysematous. Linear atelectasis are seen in the lower lobes. 7.8 mm pleural-based nodule is seen in the base of the left lung (image [id number]). Linear area of parenchymal scarring is seen in the inferior aspect of the lingula. Normal pleura. Normal chest wall structures. Normal osseous structures. Prominent xiphoid process of the sternum is noted which bulges anteriorly. Normal visualized upper abdomen. CT/Low Dose CT Lung Screening IMPRESSION: Lung-RADS Category: 3 Other Significant Findings: Emphysematous lungs. Right basilar linear atelectasis. Lingular parenchymal scarring. Calcified coronaries. Reading Location: [facility]
== END | disposition home or self-care (01) ==
LOC: CT 17:35
PROVIDERS: PCP Family Medicine; Referring Provider Nurse Practitioner Family; Visit Provider Nurse Practitioner Family
DX: F17.210 Nicotine dependence, cigarettes, uncomplicated (principal)
CPT/HCPCS: 71271

== ENCOUNTER → 2025-03-13 | Outpatient (CLI) | payer MEDICARE, SELFPAY ==
--- NOTE | 2025-03-13 08:37 | BI_ITS ---
EXAM: SCRN MAMM (CAD)W/ASHLEY BILAT DATE: 03/13/2025 CLINICAL HISTORY: F, Age 65 y/o , SCREENING Grandmother with breast cancer. TECHNIQUE: SCRN MAMM (CAD)W/ASHLEY BILAT COMPARISON: Prior exam(s) dated November 30, 2023.. FINDINGS: TISSUE DENSITY: The breasts are heterogeneously dense, which may obscure small masses. Bilateral Breast Mammographic Findings: No significant masses, calcifications or other abnormalities are identified. No suspicious masses, areas of developing architectural distortion, or suspicious calcifications. There has been no significant interval change. BI/SCRN MAMM (CAD)W/ASHLEY BILAT IMPRESSION: Stable examination. OVERALL FINAL ASSESSMENT BI-RADS 1: NEGATIVE. RECOMMENDATION: Routine annual follow-up in 1 Year A letter with findings and recommendations will be mailed to the patient. Reading Location: [id number]
== END | disposition home or self-care (01) ==
LOC: OPBI 08:35
PROVIDERS: PCP Family Medicine; Referring Provider Nurse Practitioner Family; Visit Provider Nurse Practitioner Family
DX: Z12.31 Encounter for screening mammogram for malignant neoplasm of breast (principal)
CPT/HCPCS: 77063; 77067

== ENCOUNTER → 2025-06-17 | Outpatient (CLI) | payer MEDICARE, SELFPAY ==
[2025-06-17 13:20] LABS: AST(SGOT) 23 U/L (<=31); Alanine Aminotransfer ALT/SGPT 22 U/L (<=34); Albumin, Serum 4.2 g/dL (3.4-4.8); Alkaline Phosphatase 73 U/L (35-104); Bilirubin, Direct 0.25 mg/dL (0.00-0.30); Globulin 2.1 g/dL (2.2-4.2)
== END | disposition home or self-care (01) ==
LOC: MTLAB 09:26
PROVIDERS: PCP Family Medicine; Referring Provider Internal Medicine Pulmonary Disease; Visit Provider Internal Medicine Pulmonary Disease
DX: R91.1 Solitary pulmonary nodule (principal); J34.9 Unspecified disorder of nose and nasal sinuses
CPT/HCPCS: 36415; 80076

== ENCOUNTER → 2025-07-17 | Outpatient (CLI) | payer MEDICARE, SELFPAY ==
[2025-07-17 12:00] LABS: Hematocrit 40.9 % (37-47); Hemoglobin 14.2 g/dL (12.0-15.0); Immature Granulocytes Count 0.020 X10^3/uL (0.0-0.0); Mean Corp Hgb Conc 34.7 g/dL (32-36); Mean Corpuscular Volume 90.1 fL (81-99); Mean Platelet Vol. 9.0 fl (6.2-12.0); NRBC Flagged by Analyzer 0 % (0-5); Platelet Count 220 K/mm3 (150-450); RBC Distribution Width CV 12.2 % (11.6-14.6); RBC Distribution Width SD 40.3 fl (35.1-43.9); Red Blood Count 4.54 M/mm3 (4.2-5.4); White Blood Count 5.7 K/mm3 (4.4-11.0)
== END | disposition home or self-care (01) ==
LOC: MTLAB 10:50
PROVIDERS: PCP Family Medicine; Referring Provider Internal Medicine Pulmonary Disease; Visit Provider Internal Medicine Pulmonary Disease
DX: R91.1 Solitary pulmonary nodule (principal); J43.9 Emphysema, unspecified
CPT/HCPCS: 36415; 85025